=== PATIENT | male | born 1935 | race Caucasian/White ===

== ENCOUNTER 2024-06-10 06:06 | Inpatient (IN) | payer OTHER, SELFPAY ==
[2024-06-10] VITALS (29 sets, daily range): BP systolic 74–110; BP diastolic 49–85; BMI 20.1; BMI 21.4
[2024-06-10 03:53] LABS: % Basophils 0.4 % (0-2); % Eosinophils 0.6 % (0-6); % Immature Granulocytes 0.5 % (0-0.5); % Lymphocytes 27.8 % (20.5-51.1); % Monocytes 8.2 % (1.7-9.3); % Neutrophils 62.5 % (42.2-75.2); Absolute Eosinophils 0.1 10^3/uL (0-0.7); Absolute Lymphocytes 2.3 10^3/uL (1.2-3.4); Absolute Monocytes 0.7 10^3/uL (0.1-0.6); Absolute Neutrophils 5.2 10^3/uL (1.4-6.5); Hematocrit 41.3 % (39.0-52.0); Hemoglobin 13.5 g/dL (13.0-18.0); Mean Corp Hgb Conc. 32.7 g/dL (33.0-37.0); Mean Corpuscular Hgb 31.2 pg (27.0-31.0); Mean Corpuscular Volume 95.4 fL (80.0-94.0); Mean Platelet Volume 10.2 fL (7.4-10.4); Nucleated Red Blood Cells % 0 % (-); Platelet Count 281 10^3/uL (130-400); Red Blood Cell Count 4.33 10^6/uL (4.70-6.10); Red Cell Dist. Width 15.3 % (11.5-14.5); White Blood Cell Count 8.4 10^3/uL (4.8-10.8)
[2024-06-10 04:04] LABS: Lactic Acid 3.2 mmol/L (0.7-2.0)
[2024-06-10 04:05] LABS: ALT (SGPT) 20 U/L (0-50); AST (SGOT) 38 U/L (17-59); Albumin 2.7 g/dl (3.5-5.0); Alkaline Phosphatase 120 U/L (38-126); Blood Urea Nitrogen 35 mg/dl (9-20); Calcium 7.8 mg/dl (8.4-10.2); Carbon Dioxide 28 mmol/L (22-30); Chloride 104 mmol/L (98-107); Estimated Creatinine Clearance 27 ml/min; Glucose 138 mg/dl (70-99); Lipase 388 U/L (23-300); Potassium 4.4 mmol/L (3.5-5.1); Sodium 143 mmol/L (135-145); Total Bilirubin 0.6 mg/dl (0.2-1.3); Total Protein 6.4 g/dl (6.3-8.2); eGFR 35.76
[2024-06-10 04:05] LABS: Urine Albumin Trace (Neg - Trace); Urine Bilirubin 1+ (Negative); Urine Color Amber; Urine Glucose Negative (Negative); Urine Ketone 1+ (Negative); Urine Leukocyte 2+ (Negative); Urine Nitrite Negative (Negative); Urine Occult Blood 4+ (Negative); Urine Specific Gravity 1.025 (<1.030); Urine Urobilinogen Negative (Neg - 1+)
[2024-06-10 04:06] LABS: Urine Character Slightly Cloudy (Clear)
[2024-06-10 04:07] LABS: Urine Bacteria Many (Negative); Urine Red Blood Cell >100 /HPF (0-2); Urine White Cell >100 /HPF (0-5)
[2024-06-10 04:09] LABS: INR 1.48; PT 18.2 Sec (11.4-14.6)
[2024-06-10 04:10] LABS: APTT 37.6 Sec (23.4-35.0)
[2024-06-10 04:16] LABS: NT-proBNP 7920 pg/ml; Troponin I 0.157 ng/ml
--- NOTE | 2024-06-10 04:49 | ED.GENMED ---
History of Present Illness
General
Chief Complaint: Abdominal Pain
Source: patient and ambulance crew
Time Seen by Provider: 06/10/24 03:19
History of Present Illness
History of Present Illness:
This a pleasant 88-year-old male presents to the emergency department complaining of epigastric pain that is burning in nature. He does report associated shortness of breath. Patient lives at [facility] when he presented via
EMS. Patient has a history of duodenal ulcer with repair. He has been living [facility] since that surgery and April. Tonight patient reports shortness of breath which is exacerbated by lying flat. Patient denies fever,
chills, nausea or vomiting.
Review of Systems
Review of Systems
Allergies reviewed?: Yes
All Other Systems: ROS reviewed and negative except as documented in HPI and ROS
Respiratory: Reports cough and trouble breathing
Cardiac: Reports chest pain
ABD/GI: Reports abdominal pain
Psychiatric: Reports anxiety
Phy Exam
General Physical Exam
General Presentation: well appearing and no apparent distress
General Skin: warm and dry
General Habitus: normal
General Mental: alert
General Hydration: appears well hydrated
ENT Exam
ENT Exam: EOMI, pharynx normal, neck supple and normocephalic
Eye Exam
Eye Exam: PERRL, cornea clear and conjunctiva normal
Cardiovascular Exam
Cardiovascular Exam: regular rate/rhythm, no edema, no murmur and normal peripheral pulses
Pulmonary Exam
Pulmonary Exam: lungs clear, no respiratory distress, no rales, no crackles, no rhonchi, no stridor and no wheezing
Cough: coarse cough
Gastrointestinal Exam
Gastrointestinal Exam: normal bowel sounds, non tender, soft, no organomegaly, no pulsatile mass and non distended
Neurological Exam
Neurological Exam: alert, oriented x3, no motor deficits and speech normal
Musculoskeletal Exam
Musculoskeletal Exam: full ROM and no edema
Skin Exam
Skin Exam: normal color, warm/dry, no rash and no petechia
Psychiatric Exam
Psychiatric Exam: normal mood/affect
Scores
Heart Failure Risk
Heart Failure Risk Score: Yes
History of Stroke or TIA: No
History of intubation for respiratory distress: No
Heart rate on ED arrival >/= 110: Yes
SaO2 <90% on arrival on room air: No
HR >/=110 during 3min walk test (or too ill to perform test): Yes
ECG has acute ischemic changes: Yes
Urea >/=12mmol/L (BUN 33.6mg/dL): Yes
Serum CO2>/=35mmol/L: No
Troponin I or T elevated to IL Level (0.4mg/dL): No
NT-proBNP >/=5,000ng/L (5,000pg/ml): Yes
HF Risk Score: 6
Admission Status: VERY HIGH RISK 55.3% Consider admission to hospital
Sepsis
Sepsis Screening
Sepsis Assessment: Sepsis Ruled Out
Sepsis Screen
Sepsis Screen: Sepsis Ruled Out
Date: 06/11/24
Time: 21:47
Course
Orders/Labs/Results
Orders:
Orders
06/10/24 03:34
CR Chest - 2 Views Urgent
Comment:
Reason For Exam: chest pain
06/10/24 03:35
Electrocardiogram (*1) Urgent
Reason for Study: Abdominal Pain
EKG- Treatment ONCE
06/10/24 03:38
Complete Blood Count/With Diff Urgent
Comprehensive Metabolic Panel Urgent
Lactic Acid Urgent
Lipase Urgent
NT-proBNP Urgent
PTT Urgent
Prothrombin Time Urgent
Troponin I Urgent
06/10/24 03:40
Urinalysis Reflex To Culture Urgent
Date Specimen was Collected: 06/10/24
Time Specimen was Collected: 03:39
Urine Microscopic Reflex Cult Urgent
Blood Culture Q30M
RADHA Source: Blood/Venous
Specimen Description:
Urine Culture Urgent
RADHA Source: U
Specimen Description:
Date Specimen was Collected: 06/10/24
Time Specimen was Collected: 03:39
06/10/24 04:51
Furosemide [Lasix] 40 mg IV NOW STA
06/10/24 04:54
0.9% Sodium Chloride 250 ml [Nss] 250 ml IV BOLUS
Piperacillin/Tazo 4.5 Gram [Zosyn] 4.5 gram in 100 ml IV NOW
06/10/24 05:26
COVID-19 Antigen Urgent
Source: Nasal Swab
Blood Culture Q30M
RADHA Source: Blood/Venous
Specimen Description:
Influenza A+B Rapid Molecular Urgent
RADHA Source: Nasal Swab
Specimen Description:
06/10/24 05:29
Admit/Transfer Patient As Directed
Co-Sign Provider:
Level of Care: Inpatient admission
Assign to:: IMU- Intermediate Care
Physician / Group: Drake
Diagnosis: RACHNA, Pneumonia / Sepsis
Reason for Hospitalization: RACHNA, Pneumonia / Sepsis
Expected length of stay greater than two midnights?: Yes
ELOS- Estimated Length of Stay in days: 3
I certify the patient meets the requirements for IP care: Yes
06/10/24 05:30
PRN Pain Medication Management As Directed
May give lesser potent ordered pain med per pt: Yes
preference::
Protocol:: Medication orders for pain may be administered in a
manner that supports deferring to patient preference
when the pt is:
- Requesting an ordered lesser potent pain medication.
Least to most potent pain medications are defined
as: acetaminophen < NSAID < tramadol < opioids
(morphine, oxycodone, hydromorphone).
- Requesting a lesser dose of the same medication IF
ORDERED.
- Requesting a less intrusive route of administration
if both routes are prescribed by the provider (PO <
IV).
06/10/24 05:33
Code Status As Directed
Resuscitation Status: Full Code
06/10/24 05:43
Magnesium Sulfate 2 Gram/50 ml [Magnesium Sulfate] 2 gram in 50 ml IV NOW
Heparin Protocol- PTT Orders As Directed
PTT per Heparin protocol: -Obtain CBC and baseline PTT - if not already collected.
-Obtain PTT 6 hours from start of infusion. Then, every 6 hours until 2 consecutive
PTT's are therapeutic. Then, PTT Daily.
-With each rate change, obtain PTT every 6 hours until 2 consecutive PTT's are
therapeutic. Then, PTT Daily.
Notify MD As Directed
Notify physician if: PTT is greater than or equal to 200.
06/10/24 05:45
Heparin 92303 Units/250 ml 25,000 units in 250 ml IV PER PROTOCOL
Weight to be used for heparin protocol in kilograms (kg):: 67
Protocol:: Cardiac Tx/Acute Coronary
PTT Goal Range to be used:: PTT 73 to 111 seconds
Order type:: Initial
INITIAL Infusion Dose (UNITS/KG/hr) & then follow protocol:: 12 units/kg/hr
Infusion Dose in UNITS/hr & then follow protocol (UNITS/hr):: 800
INFUSION RATE in mL/hr & then follow protocol (mL/hr):: 8
PTT less than or equal to 64 seconds:: Increase rate by 200 units/hr (+ 2 mL/hr)
PTT 64.1 to 72.9 seconds:: Increase rate by 100 units/hr (+ 1 mL/hr)
PTT 73 to 111 seconds:: Target Range. No change in rate.
PTT 111.1 to 130.9 seconds:: Decrease rate by 100 units/hr (- 1 mL/hr)
PTT 131 to 199.9 seconds:: HOLD for 1 hr. Then decrease rate by 200 units/hr (- 2 mL/hr)
PTT greater than or equal to 200 seconds:: HOLD for 2 hrs & Notify Provider. Then decrease by 200 units/hr (-
2 mL/hr)
Lab follow-up:: Each change, PTT q6h until 2 consecutive are therapeutic. Then PTT
daily.
06/10/24 05:58
Complete Blood Count/No Diff Urgent
Comment: Obtain baseline before beginning heparin infusion if not already collected
PTT Urgent
Comment: Obtain baseline before beginning heparin infusion if not already collected
06/10/24 Breakfast
NPO
Allow oral meds: Yes
Allow clear liquids: Sips of Clears
06/10/24 06:06
Metoprolol [Lopressor] 2.5 mg IV NOW STA
06/10/24 07:44
Stool Culture Urgent
RADHA Source: Feces/Stool
Specimen Description:
Date Specimen was Collected: 06/10/24
Time Specimen was Collected: 07:44
06/10/24 09:00
Acetaminophen [Tylenol] 650 mg PO Q6H PRN
Aspirin Chewable [Low Strength Aspirin] 81 mg PO DAILY
Levalbuterol [Xopenex 0.63 mg Inhalant Solution] 0.63 mg INH R Q6HPRN PRN
Metoprolol [Lopressor] 75 mg PO BID
Morphine Sulfate 2 mg IV Q4HPRN PRN
Nitroglycerin Sublingual [Nitrostat (Sublingual)] 0.4 mg SL [id number] PRN
Nystatin/Triamcinolone [Mycolog Cream] See Dose Instructions TOPICAL TID
Pantoprazole [Protonix IV] 40 mg IV BID
Piperacillin/Tazo 3.375 Gram [Zosyn] 3.375 gram in 50 ml IV Q6H
Saccharomyces Boulardii [Florastor] 250 mg PO BID
06/10/24 09:00
Echo 2D MMode Doppler [Echo 2D MMode Color/Doppler] Routine
Reason for Study: CHF, A-Fib
CARDIOLOGY CONSULT Routine
Consulting Provider: Marla Gonzales.
Was physician already notified: No
Reason for consult: A-Fib, ACS
Consult Notification Routine
Specialty to Notify: Cardiology
Date consulting provider notified: 06/10/24
Time consulting provider notified: 09:29
Notified:: Provider
Comment: Marla Gonzales
WOUND/OSTOMY CONSULT Routine
Reason for Consult: Sacral Wound
Heparin Protocol- PTT Orders As Directed
PTT per Heparin protocol: -Obtain CBC and baseline PTT - if not already collected.
-Obtain PTT 6 hours from start of infusion. Then, every 6 hours until 2 consecutive
PTT's are therapeutic. Then, PTT Daily.
-With each rate change, obtain PTT every 6 hours until 2 consecutive PTT's are
therapeutic. Then, PTT Daily.
Activity As Directed
Activity Level: Ambulate
With Assistance
EKG with chest pain [ECG as needed] As Directed
ECG as needed for:: Chest Pain
I/O [Intake/ Output] As Directed
Frequency: Per unit guidelines
Notify MD As Directed
Notify physician if: PTT is greater than or equal to 200.
Precautions As Directed
Type of Precautions: Aspiration
Vital Signs As Directed
Frequency: Per unit guidelines
Weight As Directed
Frequency: Daily
Xopenex Reason for Use As Directed
Reason for ordering Xopenex instead of Albuterol: Tachycardia
Chest PT [Rx Chest Pt] [RESP] Routine
Special Instructions: BID
Incentive Spirometry [Rx Incentive Spirometry] [RESP] Routine
Frequency: q1h while awake
Oxygen Therapy [O2 Therapy] [RESP] Routine
Titrate/Wean O2 to maintain O2 sat greater than (%): 94
Ot Eval And Treat Routine
PT Consult [Pt Eval And Treat] Routine
Activity Level: Ambulate
With Assistance
Speech Therapy Eval & Treat Routine
DX Deep Vein Thrombosis Video Routine
06/10/24 09:35
Glycohemoglobin (HgbA1c) Routine
Troponin I Q6H
06/10/24 10:00
Ammonium Lactate 12% [Lac Hydrin, Am Lactin Lotion] See Dose Instructions TOPICAL BID
06/10/24 15:23
Troponin I Q6H
06/10/24 20:22
Troponin I Q6H
06/10/24 22:00
Atorvastatin [Lipitor] 10 mg PO HS
06/11/24 03:26
Complete Blood Count/No Diff IN AM
06/11/24 06:00
EKG [Electrocardiogram (*1)] IN AM
Reason for Study: Chest Pain
06/12/24 06:00
Complete Blood Count/No Diff Q2D
Comment: Notify MD if platelet count is <130,000 or decreases by 50% from baseline
Complete Blood Count/No Diff Q2D
Comment: notify provider: Platelet count < 130,000 or decrease by 50% from baseline
06/14/24 06:00
Complete Blood Count/No Diff Q2D
Comment: Notify MD if platelet count is <130,000 or decreases by 50% from baseline
Complete Blood Count/No Diff Q2D
Comment: notify provider: Platelet count < 130,000 or decrease by 50% from baseline
06/16/24 06:00
Complete Blood Count/No Diff Q2D
Comment: Notify MD if platelet count is <130,000 or decreases by 50% from baseline
Complete Blood Count/No Diff Q2D
Comment: notify provider: Platelet count < 130,000 or decrease by 50% from baseline
06/18/24 06:00
Complete Blood Count/No Diff Q2D
Comment: Notify MD if platelet count is <130,000 or decreases by 50% from baseline
Complete Blood Count/No Diff Q2D
Comment: notify provider: Platelet count < 130,000 or decrease by 50% from baseline
06/20/24 06:00
Complete Blood Count/No Diff Q2D
Comment: Notify MD if platelet count is <130,000 or decreases by 50% from baseline
Complete Blood Count/No Diff Q2D
Comment: notify provider: Platelet count < 130,000 or decrease by 50% from baseline
06/22/24 06:00
Complete Blood Count/No Diff Q2D
Comment: Notify MD if platelet count is <130,000 or decreases by 50% from baseline
Complete Blood Count/No Diff Q2D
Comment: notify provider: Platelet count < 130,000 or decrease by 50% from baseline
06/24/24 06:00
Complete Blood Count/No Diff Q2D
Comment: Notify MD if platelet count is <130,000 or decreases by 50% from baseline
Complete Blood Count/No Diff Q2D
Comment: notify provider: Platelet count < 130,000 or decrease by 50% from baseline
06/26/24 06:00
Complete Blood Count/No Diff Q2D
Comment: Notify MD if platelet count is <130,000 or decreases by 50% from baseline
Complete Blood Count/No Diff Q2D
Comment: notify provider: Platelet count < 130,000 or decrease by 50% from baseline
Abnormal Lab Results
06/10/24 06/10/24 06/10/24
03:38 03:40 05:58
RBC 4.33 L 10^6/uL 4.20 L 10^6/uL
(4.70-6.10) (4.70-6.10)
MCV 95.4 H fL 96.0 H fL
(80.0-94.0) (80.0-94.0)
MCH 31.2 H pg
(27.0-31.0)
MCHC 32.7 L g/dL 32.3 L g/dL
(33.0-37.0) (33.0-37.0)
RDW 15.3 H % 15.4 H %
(11.5-14.5) (11.5-14.5)
Absolute Monos (auto) 0.7 H 10^3/uL
(0.1-0.6)
PT 18.2 H Sec
(11.4-14.6)
APTT 37.6 H Sec
(23.4-35.0)
BUN 35 H mg/dl
(9-20)
Creatinine 1.8 H mg/dL
(0.7-1.3)
Glucose 138 H mg/dl
(70-99)
Lactic Acid 3.2 H mmol/L
(0.7-2.0)
Calcium 7.8 L mg/dl
(8.4-10.2)
Troponin I 0.157 H* ng/ml
Albumin 2.7 L g/dl
(3.5-5.0)
Lipase 388 H U/L
(23-300)
Urine Ketones 1+ A
(Negative)
Ur Occult Blood Reflex 4+ A
(Negative)
Urine Bilirubin 1+ A
(Negative)
Leukocyte Esterase Rfl 2+ A
(Negative)
Urine RBC >100 A /HPF
(0-2)
Urine WBC (Reflex) >100 A /HPF
(0-5)
Urine Bacteria (Reflex) Many A
(Negative)
06/10/24 05:58
06/10/24 03:38
Vital Signs
Initial and Last Documented VS:
Initial Vital Signs
Temp Pulse Resp Pulse Ox
98.1 F 127 35 94
06/10/24 03:21 06/10/24 03:21 06/10/24 03:21 06/10/24 03:21
Last Documented Vital Signs
Temp Pulse Resp BP Pulse Ox
97.4 F 113 23 107/73 96
06/11/24 21:07 06/11/24 17:28 06/11/24 06:00 06/11/24 17:28 06/11/24 15:54
*Critical Care Note
Total Time (30-74mins, 75-104mins- exclusive of procedures): Not Applicable
ED Attending Note
-
Portions of this chart may have been created with voice recognition software.� Occasional wrong word or��sound alike� substitutions may have occurred due to the inherent limitations of voice recognition software.
Discharge Plan
Departure
Patient Disposition: Admit
Date of Disposition: 06/10/24
Time of Disposition: 04:51
Presentation/result/management discussed w/ accepting MD/DO: Hospitalist
Condition: Fair
Discharge Problem:
CHF (congestive heart failure), Chest pain, Non-ST elevation IL (NSTEMI), Acute UTI, Sepsis
Interventions
Interventions:
*Risk Screen - Suicide Last Done: 06/10/24 03:21
*General Assessment Last Done: 06/10/24 03:21
*Neglect/Abuse Screening Last Done: 06/10/24 03:21
ED- Fall Risk Assessment Last Done: 06/10/24 04:07
*ED COVID-19 Vaccine History Last Done: 06/10/24 03:21
*Nursing Disposition Last Done: 06/10/24 18:30
ES-Ynlibf-[id number] Assessment Last Done: 06/10/24 04:07
Discharge Date and Time
Discharge Date/Time: 06/10/24 18:30
--- NOTE | 2024-06-10 05:17 | HPS.HSE ---
Family Physician
-
Family Physician: Bruce Calixto
Chief Complaint
-
SOB, Chest Discomfort
History of Present Illness
Patient is an 88y M with PMH significant for ASCVD, A-Fib and recent duodenal ulcer s/p repair who presents to ED complaining of burning epigastric pain and SOB. Patient is currently in SNF at [facility]. He was originally
hospitalized at [facility] in April for perforated duodenal ulcer and underwent ex alp and repair at that time. He was discharged to SNF in [place] from 04/20 - 05/21 and then discharged to home. He did not do well at home and was admitted to
[facility] on 06/01 for continued therapy / recovery.
Patient states that he developed a cough a few days ago. He has difficulty expectorating / bringing up mucus. He had a CXR done on that was read as RLL Pneumonia and he was started on abx with cefuroxime at that time.
This evening, patient states that his PM pills were all 'crushed up' and he took them. Following this he developed a burning sensation in the lower chest / upper abdomen. He complained of feeling SOB - especially with lying flat.
Staff at the facility noted that he was hypotensive with BP in the 80s and patient was sent to the ED for further evaluation and treatment.
At the time of my examination patient is awake and alert.
He continues to complain of a burning epigastric sensation and some shortness of breath and cough with thick mucus.
He denies any fevers / chills. He denies any recent GI complaints. He has a chronic Chiang in place.
Medical History
Past Medical History
Past Medical History: Reports Other
Additional Past Medical History:
ASCVD
Hypertension
Atrial Fibrillation
CHF - Unknown Type
BPH / Neurogenic Bladder
Duodenal Ulcer Perforation
CKD III
Past Surgical History: Reports Other
Additional Past Surgical History:
Ex Lap / Repair of Perforated Duodenal Ulcer (04/2024 @ [facility])
Right JEN
LLE ORIF
PTCA with Stent x 2
Social History
Tobacco: Non-smoker
Alcohol: None
Drug: None
Living: Other (Currently in rehab.)
Family History
Family History: Not pertinent
Allergies / Home Medications
Allergies reflects when Allergies were last updated in [facility].
Home Medications with original date entered in [facility]
Allergy/Medication List:
Allergies
Allergy/AdvReac Type Severity Reaction Status Date / Time
No Known Allergies Allergy Unverified 06/10/24 03:20
Home Medications
Saccharomyces boulardii 250 mg capsule 250 mg PO BID 06/10/24
acetaminophen 325 mg tablet 650 mg PO Q6H PRN fever or pain 06/10/24
ammonium lactate 12 % topical cream 1 applic topical BID 06/10/24
bisacodyl 10 mg rectal suppository (Dulcolax (bisacodyl)) 10 mg OK DAILY PRN constipation 06/10/24
cefuroxime axetil 500 mg tablet 500 mg PO BID 06/10/24
clopidogrel 75 mg tablet (Plavix) 75 mg PO DAILY AFIB 06/10/24
fenofibrate micronized 200 mg capsule 200 mg PO DAILY 06/10/24
furosemide 40 mg tablet (Lasix) 40 mg PO DAILY 06/10/24
lutein 25 mg-zeaxanthin 5 mg capsule 1 cap PO BID 06/10/24
magnesium hydroxide 400 mg/5 mL oral suspension (Milk of Magnesia) 1,200 mg PO DAILY PRN constipation 06/10/24
metoprolol tartrate 25 mg tablet 75 mg PO BID 06/10/24
nystatin-triamcinolone 100,000 unit/g-0.1 % topical cream 1 applic topical TID 06/10/24
pantoprazole 40 mg tablet,delayed release 40 mg PO DAILY GERD 06/10/24
rivaroxaban 15 mg tablet (Xarelto) 15 mg PO DAILY 06/10/24
simvastatin 20 mg tablet 20 mg PO HS 06/10/24
sodium phosphates 19 gram-7 gram/118 mL enema (Fleet Enema) 118 ml OK ONCE PRN constipation 06/10/24
tamsulosin 0.4 mg capsule (Flomax) 0.4 mg PO DAILY 06/10/24
tuberculin PPD 5 tub. unit/0.1 mL intradermal injection solution (Tubersol) 5 unit intradermal ONCE 06/10/24
zinc oxide 13 % topical cream 1 applic topical BID 06/10/24
Review of Systems
-
History Source: Patient
A 12 point ROS was completed and negative except as noted: Yes
Constitutional: Denies Fever or Chills
EENT: Denies Sore Throat
Respiratory: Reports Cough and Trouble Breathing; Denies Hemoptysis
Cardiac: Reports Chest Pain; Denies Diaphoresis, Palpitations or Syncope
Abdomen/GI: Reports Abdominal Pain; Denies Nausea, Vomiting or Diarrhea
: Denies Flank Pain or Bleeding
Musculoskeletal: Denies Joint Pain or Edema
Skin: Reports Other (Groin / perineum rash. Sacral wound.)
Neurological: Reports Headache; Denies Dizzy
Psych: Denies Depression or Anxiety
Physical Exam
Vital Signs
Vital Signs
Temp Pulse Resp BP Pulse Ox
98.1 F 131 22 96/68 95
06/10/24 03:21 06/10/24 04:06 06/10/24 04:06 06/10/24 04:06 06/10/24 04:06
Physical Exam
General: Other (Frail 88y M in mild distress due to dyspnea and cough.)
HEENT: Moist mucous membranes, PERRLA and Other (Missing / poor dentition. Neck is supple. Neck veins are flat.)
Respiratory: Other (Few coarse breath sounds - mostly at the R base. No wheeze / rales.)
Cardiac: S1/S2, Irregular Rhythm and Tachycardia; No Murmur
GI: Soft, Non Tender, Non Distended and Normal Bowel Sounds
Genito-urinary: Other (Chiang in place.)
Musculoskeletal: No Clubbing, No Cyanosis and Other (Chronic venous stasis skin changes. No significant LE edema.)
Skin: Other (Perineum rash / erythema. Sacral wound without bleeding.)
Neuro: AO x 3
Laboratory Results
-
06/10/24 03:38
06/10/24 03:38
Laboratory Results
PT 18.2 Sec (11.4-14.6) H 06/10/24 03:38
INR 1.48 06/10/24 03:38
APTT 37.6 Sec (23.4-35.0) H 06/10/24 03:38
Lactic Acid 3.2 mmol/L (0.7-2.0) H 06/10/24 03:38
Total Bilirubin 0.6 mg/dl (0.2-1.3) 06/10/24 03:38
AST 38 U/L (17-59) 06/10/24 03:38
ALT 20 U/L (0-50) 06/10/24 03:38
Alkaline Phosphatase 120 U/L (38-126) 06/10/24 03:38
Troponin I 0.157 ng/ml H* 06/10/24 03:38
Lipase 388 U/L (23-300) H 06/10/24 03:38
Impression/Plan
-
A/P: Patient is an 88y M with PMH significant for ASCVD, A-Fib, CHF and recently diagnosed RLL Pneumonia who presents to ED for evaluation of cough, SOB, epigastric pain and hypotension.
RLL Pneumonia
Sepsis secondary to the above
Lactic Acidosis secondary to the above
- Admit for further evaluation and treatment.
- Continue IV abx with Zosyn for now.
- Aspiration precautions, mucolytics, nebs (Xopenex).
- Follow for clinical improvement.
ACS
ASCVD
- EKG with ST changes in anteroseptal leads concerning for active ischemia. No prior tracings for comparison.
- Initial troponin = 0.157 - in patient with sepsis and A-Fib / RVR.
- Given history, current EKG and symptoms (burning epigastric pain) - will begin IV heparin for now.
- Monitor on tele.
- Follow serial troponin / EKG.
- Cardiology evaluation.
- ASA, statin, continue beta-blockade, etc.
Chronic HF - Unknown Type
- Patient does not appear volume overloaded on exam.
- Neck veins are flat, no significant edema - seems a change from exams documented at [facility].
- Would hold diuretics for now.
- Check Echo.
- Follow I/Os, daily weights, etc.
- Cardiology eval as noted above.
Atrial Fibrillation with Rapid Ventricular Response
- Initial heart rates approx 130 on arrival.
- Continue / resume metoprolol.
- Adjust chronotropic medications as needed for rate control.
- Hold Xarelto for now while on heparin.
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
- SCr = 1.8 and [facility] notes recent SCr = 1.4.
- Holding Lasix as noted above.
- Follow for return to baseline renal function.
Duodenal Ulcer
GERD
- s/p ex lap and duodenal ulcer repair in April at [facility].
- IV PPI BID for now.
- Abdomen exam is benign in the ED. No air beneath diaphragm on CXR.
- Consider GI evaluation if symptoms persist and CV evaluation as noted above is unremarkable.
BPH
Neurogenic Bladder
- Chiang in place. Maintain.
- UA noted - RBCs and WBCs in equal numbers. Nitrites negative.
- Follow-up culture data.
DVT Prophylaxis: On Heparin at present.
Code Status: Full
[2024-06-10] MEDS: NSS 250 IV ×3 (05:23→16:20)
[2024-06-10] MEDS: ZOSYN 100 IV (05:29)
[2024-06-10 05:53] LABS: COVID-19 Antigen Negative (Negative)
[2024-06-10 06:05] LABS: Hematocrit 40.3 % (39.0-52.0); Mean Corp Hgb Conc. 32.3 g/dL (33.0-37.0); Mean Platelet Volume 9.9 fL (7.4-10.4); Platelet Count 263 10^3/uL (130-400); Red Cell Dist. Width 15.4 % (11.5-14.5); White Blood Cell Count 7.4 10^3/uL (4.8-10.8)
[2024-06-10 06:14] LABS: APTT 33.8 Sec (23.4-35.0)
[2024-06-10] MEDS: LOPRESSOR 2.5 MG IV ×2 (06:19→11:00)
[2024-06-10] MEDS: MAGNESIUM SULFATE 50 IV (06:22)
[2024-06-10] MEDS: HEPARIN 25000 UNITS/250 ML IV (06:34)
[2024-06-10 07:43] LABS: Lactic Acid 2.5 mmol/L (0.7-2.0)
--- NOTE | 2024-06-10 09:01 | W.PN.HOSP.TC ---
Today's Communication/Plan
-
See bold
Assessment / Plan
Assessment / Plan
88y M with PMH significant for ASCVD, A-Fib and recent duodenal ulcer s/p repair who presents to ED complaining of burning epigastric pain and SOB. Patient is currently in SNF at [facility]. He was originally hospitalized at [place] in
April for perforated duodenal ulcer and underwent ex alp and repair at that time. He was discharged to SNF in [place] from 04/20 - 05/21 and then discharged to home. He did not do well at home and was admitted to [facility] on 06/01
for continued therapy / recovery.
Patient states that he developed a cough a few days ago. He has difficulty expectorating / bringing up mucus. He had a CXR done on 06/08/24 that was read as RLL Pneumonia and he was started on abx with cefuroxime at that time.
RLL Pneumonia
Sepsis secondary to the above
Lactic Acidosis secondary to the above
- Continue IV Zosyn, mucolytics, supportive care
- Trend fever and white count, follow-up on blood cultures
ACS/NSTEMI
ASCVD
- Appreciate cardiology input, continue IV heparin drip
- ASA, statin, continue beta-blockade, etc.
Chronic HF - Unknown Type
- Hold diuretics, follow-up on echo
Atrial Fibrillation with Rapid Ventricular Response
- Initial heart rates approx 130 on arrival.
- Status post metoprolol to tartrate 2.5 mg IV x 2
- Change home metoprolol 75 mg twice a day to 50 mg 4 times daily
- Hold Xarelto for now while on heparin.
Hypotension
- Gentle IV fluids, midodrine as needed MAP less than 65
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
- SCr = 1.8 and MS notes recent SCr = 1.4.
- Gentle IVFs, hold Lasix, trend Cr
Duodenal Ulcer
GERD
- s/p ex lap and duodenal ulcer repair in April at [place].
- IV PPI BID
Glucose intolerance
- Hemoglobin A1c 6.2
BPH
Neurogenic Bladder
- Chiang in place. Maintain.
- UA noted - RBCs and WBCs in equal numbers. Nitrites negative.
- Follow-up culture data.
DVT Prophylaxis: IV heparin
Code Status: Full
Physical Exam
General: Frail, elderly, no acute distress
HEENT: Normocephalic, Atraumatic, EOMI, MMM
Respiratory: Clear to Auscultation bilaterally
Cardiac: Normal S1/S2, tachycardic rate, irregular rhythm
GI: Soft, Nontender, Nondistended, Normal Bowel Sounds
Extremities: No Clubbing, Cyanosis
Neuro: Nonfocal/Grossly Intact
Anticipated Discharge: > 48 hours
Subjective/Interval History
-
Date of Service: June 10, 2024
Patient reports shortness of breath and cough have improved. No chest pain, no palpitations. No fever, no vomiting.
Objective Data
-
Labs:
Laboratory Results
06/10/24 06/10/24 06/10/24
03:38 05:58 12:34
WBC 8.4 7.4
Hgb 13.5 13.0
Hct 41.3 40.3
Plt Count 281 263
PT 18.2 H
INR 1.48
APTT 37.6 H 33.8 Pending
Sodium 143
Potassium 4.4
Chloride 104
Carbon Dioxide 28
BUN 35 H
Creatinine 1.8 H
Glucose 138 H
Calcium 7.8 L
Total Bilirubin 0.6
AST 38
ALT 20
Alkaline Phosphatase 120
Vital Signs:
Vital Signs
Temp Pulse Resp BP Pulse Ox
97.9 F 132 29 94/65 95
06/10/24 07:45 06/10/24 08:00 06/10/24 08:00 06/10/24 07:00 06/10/24 08:00
I&O
06/09/24 06/10/24 06/11/24
06:59 06:59 06:59
Intake Total 350 / 350
Output Total 200 / 200
Balance 350 / 350 -200 / -200
[2024-06-10] MEDS: PROTONIX IV 40 MG IV ×2 (09:35→20:40)
[2024-06-10] MEDS: NSS (PRESERVATIVE FREE) 10 ML IV ×2 (09:36→20:40)
[2024-06-10] MEDS: LOW STRENGTH ASPIRIN 81 MG PO (09:36)
[2024-06-10] MEDS: FLORASTOR 250 MG PO ×2 (09:37→20:40)
[2024-06-10] MEDS: MYCOLOG CREAM 1 APPLIC TOPICAL ×3 (09:41→22:24)
[2024-06-10] MEDS: ProAmatine 5 MG PO ×3 (10:09→18:07)
[2024-06-10] MEDS: LAC HYDRIN, AM LACTIN LOTION 1 APPLIC TOPICAL ×2 (10:10→22:23)
[2024-06-10 10:14] LABS: Glycohemoglobin (HgbA1c) 6.2 % (4.0-5.6)
--- NOTE | 2024-06-10 10:21 | CM ---
CM received call from JIE Thorne. . As per Edith, [facility]. He was discharged to home and ultimately declined. [facility]. Edith expressed that patient's
is unable to care for patient as she is elderly and frail.
Edith is requesting clinical information to be faxed to [phone]. Edith is further requesting update when patient is medically ready for discharge.
--- NOTE | 2024-06-10 10:55 | WOUNDNOTE ---
[facility] RN note: Patient admitted with RACHNA, pneumonia, sepsis. Patient admitted from [facility].
See H&P for complete history.
PMH: ASCVD, a fib, perforated duodenal ulcer, s/p exploratory lap repair at [place] 04/2024, CHF, CKD3, BPH, neurogenic bladder, R JEN, LLE ORIF, PTCA with stent.
Wound Location and type/assessment: Patient admitted with: Multiple scattered stage 2 and stage 3 pressure injuries. MASD kaylen/scrotal/penis/buttocks with excoriated skin kaylen/buttocks skin d/t loose stools. Blanchable red heels and spine.
+Hemosiderosis Le's. R dorsal distal foot with skin tag (patient states has had for many years). L upper ear crease red from o2 use.
Appetite: currently NPO. Poor appetite.
Pressure redistribution devices in place: ED stretcher with air chair cushion.
Plan: Kaylen care given, patient turned and sacral dressing changed with help from ED KAMAR Pandya. Heels off bed with TruVue lite boots. Air chair cushion placed under sacrum. KAMAR Pandya to pass onto ED RN Inocencio re: switching patient from ED stretcher
to an air bed. t/c Bed Tech [facility] and requested a [facility] air bed.
Will confirm orders with Dr. Corcoran and discussed with KAMAR Pandya.
Care plan to be updated and will follow as needed.
Note to case management of equipment requested for discharge: Air mattress at [facility] if not already in place.
Recommend follow up at wound care center upon discharge.
[2024-06-10] MEDS: LOPRESSOR 75 MG PO (11:00)
--- NOTE | 2024-06-10 11:57 | CON.CAR ---
Addendum entered and electronically signed by Dae Medina MD 06/10/24 14:06:
I saw and examined the patient.
The PSYCHIATRIC CNS's note was reviewed and I agree with the note.
Comment: Recent well done clinical trials have shown that a conservative treatment strategy of NSTEMI in the elderly is an acceptable strategy (see https://www.nejm.org/doi/10.1056/CJQLyj6371320). If needed we can move to an invasive strategy. His
BP is limiting treatment. Currently chest pain free.
Original Note:
Consultation
Consultation Request
Date/Time Consultation Requested: 06/10/24 0900
Date/Time Consultation Performed: 06/10/24 1130
Requesting Provider: Dr. Juan
Performing Provider: Sri MADERA for Dr. Medina
Reason for Consultation: AFIB, concern for ACS
Medical History
-
Chief Complaint: chest burning
History of Present Illness:
88 y/o male with hx CAD with stenting (about 5 years ago in [place], [place]- 2 stents per patient with details unknown), AFIB (type unknown, on Xarelto), Hypertension, CKD, CHF per chart (type unknown), and recent perforated duodenal ulcer ([place]) who
is at SNF and last night about 20 minutes after taking pills developed epigastric burning radiating to his mouth, as well as SOB. He was started on OP treatment for PNA due to a cough and abnormal CXR as OP. He is CP free at the time of my
assessment. He is being treated with ABX. We are consulted for ACS (symptoms, abnormal EKG, and abnormal troponin), as well as AFIB with RVR. He is CP free and in no distress at the time of my assessment. He does not feel his afib currently and rate
is only slightly elevated 100's-110's in setting of acute illness. BP is on low end. He denies any dizziness.
Past Medical History
Past Medical History: Arrhythmias, CAD, HTN and Other (CKD)
Social History
Living: Halfway
Family History
Family History: Reviewed & Not Pertinent
Allergies / Home Medications
Allergy/AdvReac Type Severity Reaction Status Date / Time
No Known Allergies Allergy Unverified 06/10/24 03:20
�Medication �Instructions �Recorded �Confirmed �Type
Saccharomyces boulardii 250 mg 250 mg PO BID probiotic 06/10/24 06/10/24 History
capsule
acetaminophen 325 mg tablet 650 mg PO Q6H PRN fever or pain 06/10/24 06/10/24 History
ammonium lactate 12 % topical cream 1 applic topical BID b/l le 06/10/24 06/10/24 History
bisacodyl 10 mg rectal suppository 10 mg IN DAILY PRN constipation if 06/10/24 06/10/24 History
(Dulcolax (bisacodyl)) no bm after MOM
cefuroxime axetil 500 mg tablet 500 mg PO BID infection 06/10/24 06/10/24 History
clopidogrel 75 mg tablet (Plavix) 75 mg PO DAILY AFib 06/10/24 06/10/24 History
fenofibrate micronized 200 mg 200 mg PO DAILY High Cholesterol 06/10/24 06/10/24 History
capsule
furosemide 40 mg tablet (Lasix) 40 mg PO DAILY Fluid 06/10/24 06/10/24 History
Retention/Swelling
lutein 25 mg-zeaxanthin 5 mg 1 cap PO BID Supplement 06/10/24 06/10/24 History
capsule
magnesium hydroxide 400 mg/5 mL 2,400 mg PO DAILYPRN PRN if no bm 06/10/24 06/10/24 History
oral suspension (Milk of Magnesia) x 3 days
metoprolol tartrate 25 mg tablet 75 mg PO BID Blood Pressure 06/10/24 06/10/24 History
nystatin-triamcinolone 100,000 1 applic topical TID b/l butt, 06/10/24 06/10/24 History
unit/g-0.1 % topical cream sacrum, groin
pantoprazole 40 mg tablet,delayed 40 mg PO DAILY GERD 06/10/24 06/10/24 History
release
rivaroxaban 15 mg tablet (Xarelto) 15 mg PO DAILY Blood Clot 06/10/24 06/10/24 History
Prevention/Tx
simvastatin 20 mg tablet 20 mg PO HS High Cholesterol 06/10/24 06/10/24 History
sodium phosphates 19 gram-7 118 ml IN DAILYPRN PRN if dulcolax 06/10/24 06/10/24 History
gram/118 mL enema (Fleet Enema) ineffective
tamsulosin 0.4 mg capsule (Flomax) 0.4 mg PO DAILY Urinary Issue 06/10/24 06/10/24 History
zinc oxide 13 % topical cream 1 applic topical BID sacrum, 06/10/24 06/10/24 History
buttock, groin
Review of Systems
-
History Source: Patient and Other (and chart)
Respiratory: Cough and Trouble Breathing
Cardiac: Chest Pain
Physical Exam
Vital Signs
Temp Pulse Resp BP Pulse Ox
97.9 F 109 23 85/61 97
06/10/24 07:45 06/10/24 11:30 06/10/24 11:30 06/10/24 11:30 06/10/24 11:30
Lab Results
06/10/24 05:58
06/10/24 03:38
Troponin I 2.460 ng/ml H* D 06/10/24 09:35
Lqd-A-Anvwsdtwqxs Pept 7920 pg/ml 06/10/24 03:38
Physical Exam
General: Well Developed and No Apparent Distress
HEENT: Normocephalic and Anicteric
Respiratory: Clear and Non Labored Respirations
Cardiac: Regular Rhythm
Musculoskeletal: No Edema
Skin: Warm and Dry
Neuro: AO x 3
Psych: Calm
Impression / Plan
-
PNA, sepsis:
-on abx
-management per primary
NSTEMI:
-this diagnosis is threat to life
-CP free at present
-give full dose ASA
-maintain on heparin gtt, which requires intensive monitoring
-obtain echo
-would not plan for cardiac cath at this time (active PNA, no CP, abnormal creatinine, frail/elderly)- risk greater than benefit currently
CAD with hx stenting:
-on Plavix/Xarelto as OP. Currently on ASA/heparin.
-plan as above
AFIB:
-type unknown- continue metoprolol as BP will tolerate- follow tele. Rates a little fast in setting of acute illness. No symptoms from this.
-on Xarelto as OP and currently on heparin
CHF, type unknown:
-checking echo
-does not appear volume overloaded to assessment
Data Reviewed
-
EKG: Tracing Personally Visualized and interpreted (AFIB with RVR with ST abnor,alities)
Radiology: Report Reviewed by me (CXR: Right middle lobe atelectasis/collapse with volume loss. 2. Small bilateral pleural effusions.)
Medical Tests (Nuc Med, Echo etc): Other (echo ordered)
Labs: Labs Reviewed by me
[2024-06-10] MEDS: ZOSYN 50 IV ×3 (12:05→23:57)
[2024-06-10] MEDS: NSS 1000 IV ×2 (12:08→23:57)
[2024-06-10 12:46] LABS: APTT 36.4 Sec (23.4-35.0)
--- NOTE | 2024-06-10 12:53 | PTOTSP ---
Speech Therapy Evaluation:
Pt with clinical indications of oropharyngeal dysphagia, likely chronic in nature related to hx of GERD and mostly edentulous state, acutely exacerbated by respiratory insufficiency in the setting of increased congestion/cough, change in oxygenation
(requiring supplemental oxygen), and respiratory rate (becomes SOB while eating/talking). Pt also with recently diagnosed RLL. Pt accepted trials of thin liquids via cup/straw and regular solids with coughing during and outside of PO intake,
therefore difficult to discern if aspiration related. Unable to complete 3oz swallow screen as pt reported he is unable to take consecutive sips of water ( ? if related to associated SOB). MIXER OPERATOR educated pt on recommendation for VSE in future (once BP
and tachycardia resolve) given s/sx of aspiration at bedside and recently diagnosed RLL PNA. Pt in verbal agreement.
Recommend:
1. Continue NPO
2. Essential medications as tolerated
3. Oral care 3x daily
4. Ongoing ST at acute care level to determine candidacy to initiate oral diet and monitor readiness for VSE.
[2024-06-10] MEDS: ASPIRIN 325 MG PO (14:04)
[2024-06-10] MEDS: LOPRESSOR 50 MG PO (18:07)
--- NOTE | 2024-06-10 18:37 | CM ---
Patient's called to discuss previous discharge plan. Patient was recently at [facility] and then transitioned to [facility] after a hospitalization.
--- NOTE | 2024-06-10 19:00 | PTCARENOTE ---
Patient received from ED. Patient was car clerk pullman to room bed. AAO, TORYS. Heparin gtt and IVF running through IV. Wounds assessed with oncoming RN. Admission questions answer and patient oriented to room. Call preston in reach.
[2024-06-10 20:42] LABS: Lactic Acid 1.4 mmol/L (0.7-2.0)
[2024-06-10 20:48] LABS: APTT 123.7 Sec (23.4-35.0)
[2024-06-10] MEDS: LIPITOR 10 MG PO (22:22)
[2024-06-10] MEDS: LOPRESSOR PO (23:54)
[2024-06-11] VITALS (17 sets, daily range): BP systolic 88–121; BP diastolic 55–86; PULSE 110–116; O2SAT 94; BMI 21.6
--- NOTE | 2024-06-11 01:01 | PTCARENOTE ---
Rec'd pt from previous RN. Pt drowsy, but arousable to verbal stimuli and oriented. Pt is [place]. C/o 'a little' discomfort across his chest which he is unable to decipher between chest pain or epigastric pain. Denies additional complaints at this
time. Appears comfortable in bed upon assessment. Pt able to take oral medications whole with small sips of water. Call preston within reach. Pt ringing appropriately. Assessment as documented. Heparin gtt remains in place, titrated per protocol, see
worklist documentation.
[2024-06-11 03:43] LABS: Hematocrit 38.5 % (39.0-52.0); Hemoglobin 12.3 g/dL (13.0-18.0); Mean Corp Hgb Conc. 31.9 g/dL (33.0-37.0); Mean Corpuscular Hgb 31.2 pg (27.0-31.0); Mean Corpuscular Volume 97.7 fL (80.0-94.0); Mean Platelet Volume 10.8 fL (7.4-10.4); Platelet Count 283 10^3/uL (130-400); Red Blood Cell Count 3.94 10^6/uL (4.70-6.10); Red Cell Dist. Width 15.9 % (11.5-14.5); White Blood Cell Count 6.2 10^3/uL (4.8-10.8)
[2024-06-11 03:55] LABS: APTT 117.6 Sec (23.4-35.0)
[2024-06-11] MEDS: LOPRESSOR PO ×2 (05:33→23:38)
[2024-06-11] MEDS: ZOSYN 50 IV ×4 (05:37→23:40)
[2024-06-11 06:32] LABS: Blood Urea Nitrogen 34 mg/dl (9-20); Calcium 7.4 mg/dl (8.4-10.2); Carbon Dioxide 28 mmol/L (22-30); Chloride 108 mmol/L (98-107); Estimated Creatinine Clearance 30 ml/min; Glucose 87 mg/dl (70-99); HDL Cholesterol 28 mg/dl; LDL Cholesterol, Calculated 60 mg/dl; Magnesium 1.8 mg/dl (1.6-2.3); Potassium 3.8 mmol/L (3.5-5.1); Sodium 143 mmol/L (135-145); Total Cholesterol 113 mg/dl (50-199); Triglyceride 125 mg/dl (10-149); Very Low Density Lipoprotein 25 mg/dl (0-30); eGFR 41.19
--- NOTE | 2024-06-11 08:16 | W.PN.CD ---
Today's Communication / Plan
-
Transition aspirin to Plavix
Complete heparin drip for 48 hours then transition back to Xarelto
Reduce metoprolol dose to hopefully allow for more consistent dosing.
Impression / Plan
-
PNA, sepsis:
-on abx
-management per primary
NSTEMI:
-this diagnosis is threat to life
-CP free at present
-Patient typically on Plavix/Xarelto as outpatient, currently on aspirin and heparin. Will stop aspirin and resume Plavix today.
-maintain on heparin gtt, which requires intensive monitoring--- complete for 48 hours and then transition back to Xarelto, avoiding triple therapy given recent perforated duodenal ulcer.
-Echo below
-would not plan for cardiac cath at this time (active PNA, no CP, abnormal creatinine, frail/elderly)- risk greater than benefit currently
Will ultimately transition back to Plavix/Xarelto
CAD with hx stenting:
-on Plavix/Xarelto as OP. Currently on ASA/heparin.
-plan as above
AFIB:
-type unknown- continue metoprolol as BP will tolerate- follow tele.
-Rates reasonable, has not been getting metoprolol due to holding parameters. Will reduce dose to see if this will allow for more consistent dosing. Transition to succinate for discharge.
-on Xarelto as OP and currently on heparin
Heart failure with mildly reduced ejection fraction type unknown:
-Chronic
-does not appear volume overloaded to assessment
-GDMT limited by CKD and BP
Right lower lobe pneumonia care per medicine
subjective:
He has not had any further chest pain. He is still a bit short of breath but this is improving, has a productive cough.
TTE 06/11/2024 CONCLUSIONS
Mildly reduced left ventricular systolic function.
LV ejection fraction is 40-45% by visual assessment.
Basal to mid inferoseptal and basal and mid inferior hypokinesis.
Moderate left atrial enlargement.
Mitral annular calcification.
Mild mitral regurgitation.
Aortic sclerosis without stenosis.
No prior study available for comparison.
Physical Exam
Vital Signs/Labs
Vital Signs
Temp Pulse Resp BP Pulse Ox
97.7 F 95 23 98/63 99
06/11/24 05:11 06/11/24 06:00 06/11/24 06:00 06/11/24 06:00 06/11/24 06:00
06/10/24 06/11/24 06/12/24
06:59 06:59 06:59
Actual Weight 67 kg 66.3 kg
06/11/24 03:26
06/11/24 04:41
PT 18.2 Sec (11.4-14.6) H 06/10/24 03:38
INR 1.48 06/10/24 03:38
APTT 117.6 Sec (23.4-35.0) H 06/11/24 03:26
Magnesium 1.8 mg/dl (1.6-2.3) 06/11/24 04:41
Triglycerides 125 mg/dl (10-149) 06/11/24 04:41
LDL Cholesterol, Calc 60 mg/dl 06/11/24 04:41
VLDL Cholesterol, Calc 25 mg/dl (0-30) 06/11/24 04:41
HDL Cholesterol 28 mg/dl 06/11/24 04:41
06/10/24
03:38
Jrf-I-Ebnkzmvwwda Pept 7920
LAB Results
06/10/24 06/10/24 06/10/24
03:38 09:35 15:23
Troponin I 0.157 H* 2.460 H* D 12.200 H* D
06/10/24 06/11/24 06/11/24
20:22 03:26 08:00
Troponin I 19.000 H* D 12.200 H* D Cancelled
06/11/24 06/11/24
14:00 20:00
Troponin I Cancelled Cancelled
Physical Exam
Constitutional: No acute distress
Cardiovascular: Pedal edema is absent, JVD pressure is normal, Systolic murmur absent, Diastolic murmur absent and Rhythm/rate is irregular
Respiratory: Respiratory effort normal, Wheeze Absent, Crackles Absent and Rhonchi Present (Right lung adam)
Neuro/Psych: AO x 3
Data Reviewed
-
Date of Service: June 11, 2024
Medical Decision Making: Review of Case with other Provider (Telemetry shows aFib at times rate is a little bit fast but mostly overall good control. )
--- NOTE | 2024-06-11 09:00 | PTCARENOTE ---
Patient received from shift mgr. Patient resting comfortably in bed. AAO, VSS. No events noted overnight. No complaints of pain at this time. Currently on 2L N/C, mid 's sats. Heparin gtt continuing with IVF as well through IV. Wound care
to be done later today. No tests scheduled for today at this time. Call preston in reach.
--- NOTE | 2024-06-11 09:07 | W.PN.HOSP.TC ---
Addendum entered and electronically signed by Dawson Corcoran MD 06/11/24 15:35:
Correction, aspirin discontinued since Plavix has been added
Original Note:
Today's Communication/Plan
-
see bold
Assessment / Plan
Assessment / Plan
88y M with PMH significant for ASCVD, A-Fib and recent duodenal ulcer s/p repair who presents to ED complaining of burning epigastric pain and SOB. Patient is currently in SNF at [facility]. He was originally hospitalized at [place] in
April for perforated duodenal ulcer and underwent ex alp and repair at that time. He was discharged to SNF in [place] from 04/20 - 05/21 and then discharged to home. He did not do well at home and was admitted to [facility] on 06/01
for continued therapy / recovery.
Patient states that he developed a cough a few days ago. He has difficulty expectorating / bringing up mucus. He had a CXR done on 06/08/24 that was read as RLL Pneumonia and he was started on abx with cefuroxime at that time.
RLL Pneumonia
Sepsis secondary to the above
Lactic Acidosis secondary to the above
- Continue IV Zosyn D2, mucolytics, supportive care
- Trend fever and white count, blood cultures negative to date
Dysphagia
- SPL recommends n.p.o. until VSE
- Patient declining VSE today, hopeful for tomorrow
ACS/NSTEMI
ASCVD
- Appreciate cardiology input, continue IV heparin drip, Plavix added 06/11
- ASA, statin, continue beta-blockade, etc.
Chronic heart failure with reduced ejection fraction
- EF 40-45%
- Hold diuretics due to sepsis and NPO status
Atrial Fibrillation with Rapid Ventricular Response
- Appreciate cardiology input, metoprolol decreased to 25 mg every 6 hours
- Hold Xarelto for now while on IV heparin.
Hypotension
- Gentle IV fluids, midodrine as needed MAP less than 65
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
- SCr = 1.6, was 1.8 and [place] notes recent SCr = 1.4.
- Gentle IVFs, hold Lasix, trend Cr
Duodenal Ulcer
GERD
- s/p ex lap and duodenal ulcer repair in April at [place].
- IV PPI BID
Glucose intolerance
- Hemoglobin A1c 6.2
BPH
Neurogenic Bladder
- Chiang in place. Maintain.
- UA noted - RBCs and WBCs in equal numbers. Nitrites negative.
- Urine cultures growing 100,000 colonies gram-negative rods, could be colonization
DVT Prophylaxis: IV heparin
Code Status: Full
Total time spent to see the patient on the floor, examine the patient, review data and lab results, discuss treatment plan with patient, nursing staff around 51 minutes.
Physical Exam
General: Frail, elderly, no acute distress
HEENT: Normocephalic, Atraumatic, EOMI, MMM
Respiratory: Right basilar rhonchi
Cardiac: Normal S1/S2, tachycardic rate, irregular rhythm
GI: Soft, Nontender, Nondistended, Normal Bowel Sounds
Extremities: No Clubbing, Cyanosis
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
Neuro: Nonfocal/Grossly Intact
Anticipated Discharge: > 48 hours
Subjective/Interval History
-
Date of Service: June 11, 2024
Patient continues to cough. Denies chest pain, shortness of breath, or palpitations. No fever, no vomiting.
Objective Data
-
Labs:
Laboratory Results
06/11/24 06/11/24 06/11/24
03:26 04:41 11:00
WBC 6.2
Hgb 12.3 L
Hct 38.5 L
Plt Count 283
APTT 117.6 H Pending
Sodium Cancelled 143
Potassium Cancelled 3.8
Chloride Cancelled 108 H
Carbon Dioxide Cancelled 28
BUN Cancelled 34 H
Creatinine Cancelled 1.6 H
Glucose Cancelled 87
Calcium Cancelled 7.4 L
Vital Signs:
Vital Signs
Temp Pulse Resp BP Pulse Ox
97.7 F 95 23 98/63 99
06/11/24 05:11 06/11/24 06:00 06/11/24 06:00 06/11/24 06:00 06/11/24 06:00
I&O
06/10/24 06/11/24 06/12/24
06:59 06:59 06:59
Intake Total 350 / 350 1060 / 1060
Output Total 650 / 650
Balance 350 / 350 410 / 410
[2024-06-11] MEDS: LOW STRENGTH ASPIRIN PO (09:13)
[2024-06-11] MEDS: NSS (PRESERVATIVE FREE) 10 ML IV ×2 (09:13→19:56)
[2024-06-11] MEDS: LAC HYDRIN, AM LACTIN LOTION 1 APPLIC TOPICAL ×2 (09:14→19:56)
[2024-06-11] MEDS: PROTONIX IV 40 MG IV ×2 (09:14→19:55)
[2024-06-11] MEDS: PLAVIX 75 MG PO (09:14)
[2024-06-11] MEDS: FLORASTOR 250 MG PO ×2 (09:14→19:55)
[2024-06-11] MEDS: MYCOLOG CREAM 1 APPLIC TOPICAL ×3 (09:15→21:39)
--- NOTE | 2024-06-11 09:25 | PTOTSP ---
Speech Language Pathology
Pt seen for dysphagia tx. Significant wet coughing at baseline, productive at times for frothy mucous. Elevated HR with activity. Seen with meds 1 at a time with sip of liquid. Cough following 1/2 meds, unsure if related to P.O. intake. Given
significant coughing and recent dx of RLL PNA, recommend instrumental swallowing assessment.
Recommend:
(1) NPO
(2) VSE
(3) Oral care 4x/day with suctioning as needed
(4) Ok to given meds
(5) UX UI DESIGNER to continue to follow
[2024-06-11] MEDS: LOPRESSOR 25 MG PO ×2 (11:56→17:28)
[2024-06-11 12:55] LABS: APTT 140.3 Sec (23.4-35.0)
--- NOTE | 2024-06-11 13:40 | PTOTSP ---
Addendum entered and electronically signed by ST Jerardo 06/11/24 15:17:
spoke with pt. Per MD, he is to remain full code. Will remain NPO and attempt VSE again tomorrow.
Original Note:
Speech Language Pathology
Pt seen for second bedside session, as he is refusing VSE which was ordered. Discussed with pt at bedside at length. Explained reason for test, and pt stated he does not want to get up in a chair for the study. Stating he has been in and out of
hospitals and doesn't want to do more, referencing that he is 88 years old and has lived a life. Pt stated he wants to eat and see what happens.
Coughing noted with pt expectorating frothy mucous at times. Seen with sips of thin liquids via straw with cough following in 50% of trials. No overt coughing with small bites of regular solids.
Pt remains at a high risk for aspiration. Unable to fully assess pharyngeal swallow without VSE, and pt not currently willing to participate. Pt would like to eat/drink. If diet is to be considered despite risks, given limited dentition, would
consider IDDSI Level 6 (soft/bite-sized) and thin liquids. Of note, question possible esophageal involvement given epigastric pain day of admission in combination with expectoration of frothy mucous. and RN updated on discussion. Speech to
continue to follow.
[2024-06-11] MEDS: HEPARIN 25000 UNITS/250 ML IV (15:12)
--- NOTE | 2024-06-11 15:34 | W.PN.HOSP.TC ---
Today's Communication/Plan
-
Continue goals of care conversations
Assessment / Plan
Assessment / Plan
88y M with PMH significant for ASCVD, A-Fib and recent duodenal ulcer s/p repair who presents to ED complaining of burning epigastric pain and SOB. Patient is currently in SNF at [facility]. He was originally hospitalized at [place] in
April for perforated duodenal ulcer and underwent ex alp and repair at that time. He was discharged to SNF in [place] from 04/20 - 05/21 and then discharged to home. He did not do well at home and was admitted to [facility] on 06/01
for continued therapy / recovery.
Patient states that he developed a cough a few days ago. He has difficulty expectorating / bringing up mucus. He had a CXR done on 06/08/24 that was read as RLL Pneumonia and he was started on abx with cefuroxime at that time.
RLL Pneumonia
Sepsis secondary to the above
Lactic Acidosis secondary to the above
- Continue IV Zosyn D3, mucolytics, supportive care
- Trend fever and white count, blood cultures negative to date
Dysphagia
- SPL recommends n.p.o. until VSE
- 06/12 VSE shows aspiration, SPL rec GOC
- Can have essential meds in pur�e and single sips of water with supervision for comfort
- 06/12, goals of care conversations initiated by myself with patient and
- Seen by palliative care, who recommends DNR status and hospice
ACS/NSTEMI
ASCVD
- Appreciate cardiology input, recommend medical management
- Status post IV heparin drip, now back on Xarelto, Plavix added 06/11, aspirin discontinued
- Continue statin and beta-scout
Chronic heart failure with reduced ejection fraction
- EF 40-45%
- Hold diuretics due to sepsis and NPO status
Atrial Fibrillation with Rapid Ventricular Response
- Appreciate cardiology input, metoprolol decreased to 25 mg every 6 hours
- Hold Xarelto for now while on IV heparin.
Hypotension
- Gentle IV fluids, midodrine as needed MAP less than 65
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
- SCr = 1.6, was 1.8 and NH notes recent SCr = 1.4.
- Gentle IVFs, hold Lasix, trend Cr
Duodenal Ulcer
GERD
- s/p ex lap and duodenal ulcer repair in April at [place].
- IV PPI BID
Glucose intolerance
- Hemoglobin A1c 6.2
BPH
Neurogenic Bladder
- Carrasquillo in place. Maintain.
- UA noted - RBCs and WBCs in equal numbers. Nitrites negative.
- Urine cultures growing 100,000 colonies gram-negative rods, likely colonization from chronic carrasquillo
Stage 3 sacrum pressure injury, POA
Stage 1 left upper ear pressure injury, POA
-wound care, offloading
DVT Prophylaxis: Xarelto
Code Status: Full
Total time spent to see the patient on the floor, examine the patient, review data and lab results, discuss treatment plan with patient, nursing staff around 53 minutes.
Physical Exam
General: Frail, elderly, appears chronically ill, but in no acute distress
HEENT: Normocephalic, Atraumatic, EOMI, DMM
Respiratory: Right basilar rhonchi
Cardiac: Normal S1/S2, tachycardic rate, irregular rhythm
GI: Soft, Nontender, Nondistended, Normal Bowel Sounds
Extremities: No Clubbing, Cyanosis
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
Neuro: Nonfocal/Grossly Intact
Derm: Diffuse ecchymosis of upper extremities
Anticipated Discharge: > 48 hours
Subjective/Interval History
-
Date of Service: June 11, 2024
Patient continues to cough. He denies shortness of breath, denies chest pain, denies palpitations. No fever, no vomiting.
Objective Data
-
Labs:
Laboratory Results
06/11/24 06/11/24 06/11/24
03:26 04:41 12:25
WBC 6.2
Hgb 12.3 L
Hct 38.5 L
Plt Count 283
APTT 117.6 H 140.3 H
Sodium Cancelled 143
Potassium Cancelled 3.8
Chloride Cancelled 108 H
Carbon Dioxide Cancelled 28
BUN Cancelled 34 H
Creatinine Cancelled 1.6 H
Glucose Cancelled 87
Calcium Cancelled 7.4 L
06/11/24
21:10
WBC
Hgb
Hct
Plt Count
APTT Pending
Sodium
Potassium
Chloride
Carbon Dioxide
BUN
Creatinine
Glucose
Calcium
Vital Signs:
Vital Signs
Temp Pulse Resp BP Pulse Ox
97.6 F 126 23 98/86 99
06/11/24 11:45 06/11/24 11:56 06/11/24 06:00 06/11/24 11:56 06/11/24 06:00
I&O
06/10/24 06/11/24 06/12/24
06:59 06:59 06:59
Intake Total 350 / 350 1060 / 1060
Output Total 650 / 650
Balance 350 / 350 410 / 410
[2024-06-11] MEDS: NSS 1000 IV (15:43)
--- NOTE | 2024-06-11 16:05 | WOUNDNOTE ---
WOC RN note: Deven Ward re: recommend air mattress for patient at SNF if not already in place. He has sacral pressure injuries.
--- NOTE | 2024-06-11 16:08 | CM ---
Patient from [facility] with Hx recent repair perforated duodenal ulcer. O2 2L. Receiving IVF, Heparin gtt, IV Abx. PT/OT recommend skilled rehab.
Spoke with Jonathan Victor [facility];
the patient was at their facility for about 1 week for short term rehab. He did not hold his bed.
The patient was A/O, assisted with ADLs.
He self propels his w/c and requires assist of 1.
He has a carrasquillo, sacral wound and was receiving PT/OT.
Spoke with patient's Joslyn;
the patient has poor vision and his glasses were left at [place] so he is upset because he cannot see.
The patient's goes to dialysis MWF 10am - 3:30pm and keeps her cell phone with her ([phone])
says patient was at [facility] recently and went to [facility] and then home for 1 night, then returned to [facility] and then discharged to [facility].
says that the patient will want to return to [facility] to complete rehab.
The patient resides in a 2 story house with no steps at entrance.
He had been independent in ADLs and ambulation without using any assistive devices, prior to his recent surgery.
The patient recently had hospital bed delivered and slept in it one night.
DME - walker without wheels, hospital bed, air mattress, commode, w/c
Recent [facility]
PCP - Maryjane Alexander [place]
Message from Meryl, Wound Care Nurse: recommend air mattress at [facility] if not already in place. He has sacral pressure injuries- info added to [facility] referral.
Plan return to [facility] when medically ready.
[2024-06-11] MEDS: LIPITOR 10 MG PO (21:39)
[2024-06-11 22:02] LABS: APTT 72.1 Sec (23.4-35.0)
[2024-06-12] VITALS (15 sets, daily range): BP systolic 86–119; BP diastolic 59–94; BMI 20.7
[2024-06-12 04:46] LABS: Hemoglobin 11.5 g/dL (13.0-18.0); Mean Corp Hgb Conc. 31.1 g/dL (33.0-37.0); Mean Corpuscular Hgb 30.6 pg (27.0-31.0); Mean Corpuscular Volume 98.4 fL (80.0-94.0); Mean Platelet Volume 9.9 fL (7.4-10.4); Platelet Count 235 10^3/uL (130-400); Red Blood Cell Count 3.76 10^6/uL (4.70-6.10); Red Cell Dist. Width 15.6 % (11.5-14.5); White Blood Cell Count 5.8 10^3/uL (4.8-10.8)
[2024-06-12 04:54] LABS: APTT 75.6 Sec (23.4-35.0)
--- NOTE | 2024-06-12 05:23 | PTCARENOTE ---
Pt AAO, sBP 80s, but MAPs> 65, pt denies symptoms of hypotension. Heparin gtt in place, titrated per protocol, see worklist documentation. HF packet given and education performed. Call preston within reach.
[2024-06-12] MEDS: NSS 1000 IV ×2 (05:30→17:28)
[2024-06-12] MEDS: ZOSYN 50 IV ×3 (05:56→17:22)
[2024-06-12] MEDS: LOPRESSOR 25 MG PO ×3 (06:25→23:55)
--- NOTE | 2024-06-12 09:23 | W.PN.CD ---
Today's Communication / Plan
-
transition heprarin to xarelto
continue to monitor bb use with eventual transion to succinate
Impression / Plan
-
PNA, sepsis:
-on abx
-management per primary
NSTEMI:
-this diagnosis is threat to life
-CP free at present
-Patient typically on Plavix/Xarelto as outpatient, currently on aspirin and heparin. Continue clopidogrel
-maintain on heparin gtt, which requires intensive monitoring until this evening and then transition to Xarelto 15 mg daily.
-Echo below
-would not plan for cardiac cath at this time (active PNA, no CP, abnormal creatinine, frail/elderly)- risk greater than benefit currently
-Beta-scout
CAD with hx stenting:
-on Plavix/Xarelto as OP. Currently on ASA/heparin.
-plan as above
AFIB:
-type unknown- continue metoprolol as BP will tolerate- follow tele.
-Rates reasonable, has not been getting metoprolol due to holding parameters. I reduced the dose yesterday, did get 3 out of 4 doses. Will continue to monitor with eventual transition to succinate when able.
Heart failure with mildly reduced ejection fraction type unknown:
-Chronic
-does not appear volume overloaded to assessment
-GDMT limited by CKD and BP
Right lower lobe pneumonia care per medicine
Subjective:
He has not had any further chest pain. He denies sob.
He just got back from [facility]
TTE 06/11/2024 CONCLUSIONS
Mildly reduced left ventricular systolic function.
LV ejection fraction is 40-45% by visual assessment.
Basal to mid inferoseptal and basal and mid inferior hypokinesis.
Moderate left atrial enlargement.
Mitral annular calcification.
Mild mitral regurgitation.
Aortic sclerosis without stenosis.
No prior study available for comparison.
Physical Exam
Vital Signs/Labs
Vital Signs
Temp Pulse Resp BP Pulse Ox
97.3 F 114 22 102/74 99
06/12/24 07:05 06/12/24 06:25 06/12/24 06:21 06/12/24 06:25 06/12/24 06:35
06/11/24 06/12/24 06/13/24
06:59 06:59 06:59
Actual Weight 66.3 kg 63.6 kg
06/12/24 04:29
06/11/24 04:41
PT 18.2 Sec (11.4-14.6) H 06/10/24 03:38
INR 1.48 06/10/24 03:38
APTT 75.6 Sec (23.4-35.0) H 06/12/24 04:23
Magnesium 1.8 mg/dl (1.6-2.3) 06/11/24 04:41
Triglycerides 125 mg/dl (10-149) 06/11/24 04:41
LDL Cholesterol, Calc 60 mg/dl 06/11/24 04:41
VLDL Cholesterol, Calc 25 mg/dl (0-30) 06/11/24 04:41
HDL Cholesterol 28 mg/dl 06/11/24 04:41
06/10/24
03:38
Jbz-[id number]-Gamqtpviuce Pept 7920
LAB Results
06/10/24 06/10/24 06/10/24
03:38 09:35 15:23
Troponin I 0.157 H* 2.460 H* D 12.200 H* D
06/10/24 06/11/24 06/11/24
20:22 03:26 08:00
Troponin I 19.000 H* D 12.200 H* D Cancelled
06/11/24 06/11/24
14:00 20:00
Troponin I Cancelled Cancelled
Physical Exam
Constitutional: No acute distress
Cardiovascular: Pedal edema is absent, JVD pressure is normal, Systolic murmur absent, Diastolic murmur absent and Rhythm/rate is irregular
Respiratory: Respiratory effort normal, Lungs clear to auscul., Wheeze Absent, Crackles Absent and Rhonchi Absent
Neuro/Psych: AO x 3
Data Reviewed
-
Date of Service: June 12, 2024
EKG: Other (Telemetry, rate controlled A-fib)
--- NOTE | 2024-06-12 09:42 | PN.CDI ---
CDI
- -
CDI:
Physician Documentation Request
Admit Date: 06/10/24 06:06
Dear Doctor Do,
Please review the following and provide your response in the progress notes.
Clinical Indicators:
- 06/11 Wound note indicates:
- Stage 3 sacrum pressure injury, POA
- Stage 1 left upper ear pressure injury, POA
Physician documentation of the type and location of wounds is required for compliant documentation. Based on the above clinical findings and your assessment, please provide the following in your progress note:
1. Location of the ulcer/wound, including laterality.
2. Type (etiology) of ulcer/wound:
- Traumatic wound
- Pressure (decubitus) ulcer
- Non-healing surgical wound
- Other
Use of terms such as suspected, likely, concern for, or probable (associated with a specific diagnosis that is being evaluated, monitored, or treated as if it exists) are acceptable and can be coded in the inpatient setting, when documented at the
time of discharge.
Thank you,
Madina Morel RN
CDI Specialist
Please use your independent medical judgment in providing your response.
*Source: National Pressure Ulcer Advisory Panel (NPUAP)
[2024-06-12] MEDS: PROTONIX IV 40 MG IV ×2 (11:24→20:37)
[2024-06-12] MEDS: LAC HYDRIN, AM LACTIN LOTION 1 APPLIC TOPICAL ×2 (11:24→20:38)
[2024-06-12] MEDS: NSS (PRESERVATIVE FREE) 10 ML IV ×2 (11:24→20:37)
[2024-06-12] MEDS: PLAVIX 75 MG PO (11:24)
[2024-06-12] MEDS: MYCOLOG CREAM 1 APPLIC TOPICAL ×3 (11:24→23:56)
[2024-06-12] MEDS: FLORASTOR 250 MG PO ×2 (11:24→20:37)
[2024-06-12] MEDS: LOPRESSOR PO (11:26)
--- NOTE | 2024-06-12 11:58 | PTOTSP ---
Video Swallow Study
Summary: Patient presents with mild-moderate oral, moderate-severe pharyngeal dysphagia, and concern for esophageal dysphagia. Top down and bottom up aspiration risk both elevated. Further discussion re: GOC for nutrition/hydration warranted.
Recommend:
1. NPO pending further GOC discussions.
2. Aspiration Risk Hydration Protocol - single cup sips of water after oral care with supervision
3. Essential medications crushed in puree
4. Oral care 3x daily
5. Dysphagia tx f/u pending GOC
If opting for PO diet understanding risks/complications:
1. L4 puree, L0 thin liquids via single cup sips
2. Strategies: small single sips/bites, intermittent cough/reswallow, remain upright for at least 30 minutes after PO
[2024-06-12] MEDS: XARELTO 15 MG PO (15:00)
--- NOTE | 2024-06-12 15:03 | PTCARENOTE ---
Xarelto given per MAR and heparin gtt stopped per order. Care ongoing at this time.
--- NOTE | 2024-06-12 15:56 | W.CON.PAL ---
Consultation
-
Date/Time Consultation Requested: 06/12/2024
Date/Time Consultation Performed: 06/12/2024 2:30 pm
Requesting Provider: Dr. Corcoran
Performing Provider: Dr. Iyer
Reason for Consult: Goals of Care Discussion
Primary Diagnosis: Dysphagia
Reason for Admission
Illness Course/HPI
Manav is a 88 y/o male with complex medical history including CAD, recent duodenal ulcer repair, admitted with RLL pnuemonia secondary to aspiration. patient did poorly on VSE today, now NPO. additional, NSTEMi with advanced heart disease, cardiac
management limited by CKD.
Palliative consulted for goals
Patient upset and overwhelmed with news from today. Unable to make decisions without present. attending dialysis this afternoon, will try to come to hospital later today. Called from the room so that we could talk togehter. had
been updated about VSE resutls earlier today
Functional Status
Patient has been very ill over the past month with recent surgery
Lives with his , they have caregivers during the day. they have a niece who helps them with appointments.
Goals of Care Discussion
-
Individuals Present for Discussion & Relationship to Patient:
Patient, over the phone
Patient able to participate in discussion at time of visit: Yes
Patient's Information Preferences: Unsure
Patient Goals
Discussed findings of VSE - unable to safely give food and meds. Unfortunately due to cardaic and recent GI surgery, likely would not be a candiadate for tube. Main option would be comfort feeds as patient wishes to be able to eat.
Strongly recommended hospice to both patient and .
We also discussed code status, strongly recommended change to DNR
No decisions made as wants to speak with attending when she tries to get to hospital later today.
Pain & Symptom Assessment
-
patient overwhelmed. deneis pain or dyspnea at present. anxious
Objective Data
-
Objective Data:
Vital Signs
Temp Pulse Resp BP Pulse Ox
97.7 F 108 20 106/81 97
06/12/24 11:46 06/12/24 14:00 06/12/24 14:00 06/12/24 14:00 06/12/24 14:00
Laboratory Results
06/12/24 04:29
06/11/24 04:41
PT 18.2 Sec (11.4-14.6) H 06/10/24 03:38
INR 1.48 06/10/24 03:38
APTT 75.6 Sec (23.4-35.0) H 06/12/24 04:23
Hemoglobin A1c 6.2 % (4.0-5.6) H 06/10/24 09:35
Total Protein 6.4 g/dl (6.3-8.2) 06/10/24 03:38
Albumin 2.7 g/dl (3.5-5.0) L 06/10/24 03:38
Urine Color Erin 06/10/24 03:40
Urine Clarity Slightly cloudy (Clear) 06/10/24 03:40
Urine pH 5.0 (5.0-9.0) 06/10/24 03:40
Ur Specific [place] 1.025 (<1.030) 06/10/24 03:40
Urine Ketones 1+ (Negative) A 06/10/24 03:40
Urine Bilirubin 1+ (Negative) A 06/10/24 03:40
Palliative Performance Scale
Palliative Performance Scale:
PPS Level Ambulation Activity & Evidence of Disease Self Care Intake Conscious Level
100% Full Normal Activity & Work; Full Intake Full
No Evidence of Disease
90% Full Normal Activity & Work; Full Normal Full
Some Evidence of Disease
80% Full Normal Activity with Effort Full Normal or Full
Some Evidence of Disease Reduced
70% Reduced Unable Normal Job/Work Full Normal or Full
Significant Disease Reduced
60% Reduced Unable Hobby/Housework Occasional Normal or Full or Confusion
Significant Disease Assistance Reduced
50% Mainly Sit/Lie Unable to do Any Work Considerable Normal or Full or Confusion
Extensive Disease Assistance Req'd Reduced
40% Mainly in Bed Unable to do Most Activity Mainly Assistance Normal or Full or Drowsy;
Extensive Disease Reduced +/- Confusion
30% Totally Bed Unable to do Any Activity Total Care Normal or Full or Drowsy;
Bound Extensive Disease Reduced +/- Confusion
20% Totally Bed Bound Unable to do Any Activity Total Care Minimal to Full or Drowsy;
Extensive Disease Sips +/- Confusion
10% Totally Bed Bound Unable to do Any Activity Total Care Mouth Care Drowsy or Coma;
Extensive Disease Only +/- Confusion
0%
PPS Score Level:
Palliative Performance Score Response
Palliative Performance Score Response: 40%
Physical Exam
-
General: No Apparent Distress
Neuro: Awake and Alert
Psych: Anxious
Assessment / Plan
-
Assessment/Plan:
Patient and understand gravity of overall medical condition
recommended hospice care, change in code status to DNR
is at dialysis at this time, plans to arrive later today.
total floor time 60 min
--- NOTE | 2024-06-12 16:10 | PTCARENOTE ---
Patient AOx3. Patient tearful at times throughout shift regarding plan of care. Emotional support provided to patient. Patient on RA with SpO2 greater than 92%. Patient a fib on monitor. Chronic carrasquillo draining yellow/humberto urine. Incontinent of
loose diarrhea throughout shift. NPO due to VSE. Wound care completed per order. IVF running per order. Call preston within reach, bed in lowest position, bed wheels locked.
--- NOTE | 2024-06-12 17:14 | CM ---
Patient from [facility] with Hx recent repair perforated duodenal ulcer. O2 2L. Receiving IVF, IV Abx. PT/OT recommend skilled rehab. Seen by Palliative Care today for GOC.
Plan return to [facility] when medically ready.
[2024-06-12] MEDS: LIPITOR 10 MG PO (23:55)
[2024-06-13] VITALS (11 sets, daily range): BP systolic 84–118; BP diastolic 59–83; BMI 22.4
[2024-06-13] MEDS: ZOSYN 50 IV ×5 (00:05→23:28)
--- NOTE | 2024-06-13 00:57 | PTCARENOTE ---
Patient AAOx3, hard of hearing, anxious at times. Family at the bedside at change of shift. Pt 96% O2 sat on room air. A-fib on tele. Chronic carrasquillo draining yellow urine. Wound care completed per order. IV abx given. Pt tolerating Q2 hour turns.
Call preston is within reach.
[2024-06-13 05:49] LABS: Blood Urea Nitrogen 25 mg/dl (9-20); Calcium 7.8 mg/dl (8.4-10.2); Carbon Dioxide 21 mmol/L (22-30); Chloride 114 mmol/L (98-107); Estimated Creatinine Clearance 38 ml/min; Glucose 68 mg/dl (70-99); Potassium 3.5 mmol/L (3.5-5.1); Sodium 146 mmol/L (135-145); eGFR 52.84
[2024-06-13] MEDS: LOPRESSOR PO ×2 (06:13→23:28)
--- NOTE | 2024-06-13 09:01 | W.PN.HOSP.TC ---
Today's Communication/Plan
-
Continue antibiotics
Continue goals of care discussion, consult hospice
CODE STATUS changed to DNR
Assessment / Plan
Assessment / Plan
88y M with PMH significant for ASCVD, A-Fib and recent duodenal ulcer s/p repair who presents to ED complaining of burning epigastric pain and SOB. Patient is currently in SNF at [facility]. He was originally hospitalized at [place] in
April for perforated duodenal ulcer and underwent ex alp and repair at that time. He was discharged to SNF in [place] from 04/20 - 05/21 and then discharged to home. He did not do well at home and was admitted to [facility] on 06/01
for continued therapy / recovery.
Patient states that he developed a cough a few days ago. He has difficulty expectorating / bringing up mucus. He had a CXR done on 06/08/24 that was read as RLL Pneumonia and he was started on abx with cefuroxime at that time.
RLL Pneumonia
Sepsis secondary to the above
Lactic Acidosis secondary to the above
- Continue IV Zosyn D4, mucolytics, supportive care
- Trend fever and white count, blood cultures negative to date
Dysphagia
- SPL recommends n.p.o. until VSE
- 06/12 VSE shows aspiration, SPL rec GOC
- Can have essential meds in pur�e and single sips of water with supervision for comfort
- 06/12, goals of care conversations initiated by myself with patient and
- Seen by palliative care, who recommends DNR status and hospice
- 06/13, had family meeting, patient and family agreed to DNR status, consult hospice
ACS/NSTEMI
ASCVD
- Appreciate cardiology input, recommend medical management. Troponin peaked at 12.2
- Status post IV heparin drip, now back on Xarelto, Plavix added 06/11, aspirin discontinued
- Continue statin and beta-scout
Chronic heart failure with reduced ejection fraction
- EF 40-45%
- Hold diuretics due to sepsis and NPO status
Atrial Fibrillation with Rapid Ventricular Response
- Appreciate cardiology input, metoprolol decreased to 25 mg every 6 hours
- Hold Xarelto for now while on IV heparin.
Hypotension
- Gentle IV fluids, midodrine as needed MAP less than 65
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
- SCr = 1,3 was 1.6, was 1.8 and NH notes recent SCr = 1.4.
- Gentle IVFs, hold Lasix, trend Cr
Duodenal Ulcer
GERD
- s/p ex lap and duodenal ulcer repair in April at [place].
- IV PPI BID
Glucose intolerance
- Hemoglobin A1c 6.2
BPH
Neurogenic Bladder
- Carrasquillo in place. Maintain.
- UA noted - RBCs and WBCs in equal numbers. Nitrites negative.
- Urine cultures growing 100,000 colonies gram-negative rods, likely colonization from chronic carrasquillo
Stage 3 sacrum pressure injury, POA
Stage 1 left upper ear pressure injury, POA
-wound care, offloading
DVT Prophylaxis: Xarelto
Code Status: Full
Updated on phone 06/12
Updated and 2 nieces at bedside at family meeting 06/13
Total time spent to see the patient on the floor, examine the patient, review data and lab results, discuss treatment plan with patient, nursing staff around 63 minutes.
Physical Exam
General: Frail, elderly, appears chronically ill, but in no acute distress
HEENT: Normocephalic, Atraumatic, EOMI, DMM
Respiratory: Right basilar rhonchi
Cardiac: Normal S1/S2, intermittently tachycardic rate, irregular rhythm
GI: Soft, Nontender, Nondistended, Normal Bowel Sounds
Extremities: No Clubbing, Cyanosis
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
Neuro: Nonfocal/Grossly Intact
Derm: Diffuse ecchymosis of upper extremities
Anticipated Discharge: > 48 hours
Subjective/Interval History
-
Date of Service: June 13, 2024
Continues to cough, improved from prior. Denies shortness of breath, denies chest pain, denies palpitations. No fever, no vomiting.
Objective Data
-
Labs:
Laboratory Results
06/12/24 06/13/24
21:35 04:34
APTT Cancelled
Sodium 146 H
Potassium 3.5
Chloride 114 H
Carbon Dioxide 21 L
BUN 25 H
Creatinine 1.3
Glucose 68 L
Calcium 7.8 L
Vital Signs:
Vital Signs
Temp Pulse Resp BP Pulse Ox
97.6 F 91 23 96/59 94
06/13/24 07:10 06/13/24 04:00 06/13/24 04:00 06/13/24 04:00 06/13/24 04:00
I&O
06/12/24 06/13/24 06/14/24
06:59 06:59 06:59
Intake Total 2500 / 2500 960 / 960
Output Total 1100 / 1100 400 / 400
Balance 1400 / 1400 560 / 560
[2024-06-13] MEDS: LAC HYDRIN, AM LACTIN LOTION 1 APPLIC TOPICAL ×2 (09:14→20:17)
[2024-06-13] MEDS: MYCOLOG CREAM 1 APPLIC TOPICAL ×3 (09:14→20:17)
[2024-06-13] MEDS: FLORASTOR 250 MG PO ×2 (09:15→20:35)
[2024-06-13] MEDS: NSS (PRESERVATIVE FREE) 10 ML IV ×2 (09:15→20:17)
[2024-06-13] MEDS: PROTONIX IV 40 MG IV ×2 (09:15→20:17)
[2024-06-13] MEDS: PLAVIX 75 MG PO (09:15)
[2024-06-13] MEDS: 0.45% NACL with KCL 20 MEQ 1000 IV ×2 (10:11→21:42)
[2024-06-13] MEDS: LOPRESSOR 25 MG PO ×2 (11:47→18:36)
--- NOTE | 2024-06-13 12:24 | W.PN.CD ---
Today's Communication / Plan
-
-Back on adequate medications with Xarelto and Plavix along with metoprolol and Lipitor
-Please call with questions
Impression / Plan
-
PNA, sepsis:
-on abx
-management per primary
-Palliative care is following
NSTEMI:
-this diagnosis is threat to life
-CP free at present
-Patient typically on Plavix/Xarelto - Back on it.
-maintain on heparin gtt, which requires intensive monitoring until this evening and then transition to Xarelto 15 mg daily.
-Echo below
-would not plan for cardiac cath at this time (active PNA, no CP, abnormal creatinine, frail/elderly)- risk greater than benefit currently
-Beta-scout
CAD with hx stenting:
-on Plavix/Xarelto as OP. Currently on ASA/heparin.
-plan as above
AFIB:
-type unknown- continue metoprolol as BP will tolerate- follow tele.
-Rates reasonable, has not been getting metoprolol due to holding parameters. I reduced the dose yesterday, did get 3 out of 4 doses. Will continue to monitor with eventual transition to succinate when able.
Heart failure with mildly reduced ejection fraction type unknown:
-Chronic
-does not appear volume overloaded to assessment
-GDMT limited by CKD and BP
Right lower lobe pneumonia care per medicine
Subjective:
He has not had any further chest pain. He denies sob.
TTE 06/11/2024 CONCLUSIONS
Mildly reduced left ventricular systolic function.
LV ejection fraction is 40-45% by visual assessment.
Basal to mid inferoseptal and basal and mid inferior hypokinesis.
Moderate left atrial enlargement.
Mitral annular calcification.
Mild mitral regurgitation.
Aortic sclerosis without stenosis.
No prior study available for comparison.
Physical Exam
Vital Signs/Labs
Vital Signs
Temp Pulse Resp BP Pulse Ox
97.6 F 91 23 96/59 97
06/13/24 07:10 06/13/24 04:00 06/13/24 04:00 06/13/24 04:00 06/13/24 10:27
06/12/24 06/13/24 06/14/24
06:59 06:59 06:59
Actual Weight 63.6 kg 68.9 kg
06/12/24 04:29
06/13/24 04:34
PT 18.2 Sec (11.4-14.6) H 06/10/24 03:38
INR 1.48 06/10/24 03:38
APTT Cancelled 06/12/24 21:35
Magnesium 1.8 mg/dl (1.6-2.3) 06/11/24 04:41
Triglycerides 125 mg/dl (10-149) 06/11/24 04:41
LDL Cholesterol, Calc 60 mg/dl 06/11/24 04:41
VLDL Cholesterol, Calc 25 mg/dl (0-30) 06/11/24 04:41
HDL Cholesterol 28 mg/dl 06/11/24 04:41
06/10/24
03:38
Amn-H-Shiesioxjcj Pept 7920
LAB Results
06/10/24 06/10/24 06/11/24
15:23 20:22 03:26
Troponin I 12.200 H* D 19.000 H* D 12.200 H* D
06/11/24 06/11/24 06/11/24
08:00 14:00 20:00
Troponin I Cancelled Cancelled Cancelled
Physical Exam
Constitutional: No acute distress and Confusion
EENT: Anicteric and Moist mucous membranes
Cardiovascular: Rhythm/rate is irregular and Systolic murmur present
Respiratory: Respiratory effort normal and Lungs clear to auscul.
Neuro/Psych: Alert and Oriented
Data Reviewed
-
Date of Service: June 13, 2024
Medical Decision Making: Reviewed Test Results
EKG: Tracing Personally Visualized and interpreted
Echo: Report Reviewed by me
Labs: Labs Reviewed by me
Old Records: Reviewed
--- NOTE | 2024-06-13 17:37 | PTCARENOTE ---
Pt presents as assessed. Pt and family discussing GOC throughout the day. Questions answered at length by this RN and CM. Pt made DNR- purple bracelet applied.
[2024-06-13] MEDS: XARELTO 15 MG PO (18:36)
--- NOTE | 2024-06-13 19:52 | HOSPNOTE ---
Recieved a message that family would like to talk about hospice. In person introduction planned for tomorrow. Reviewed if patient transitions to comfort- can assess for gip eligibility 24 hours later, if patient is not appropriate for comfort/gip
then the plan would be for patient to dc to home with hospice agency in their area. More information after intro tomorrow to follow.
[2024-06-13] MEDS: LIPITOR 10 MG PO (20:17)
[2024-06-14] VITALS (13 sets, daily range): BP systolic 87–117; BP diastolic 56–91; BMI 21.7
[2024-06-14 04:58] LABS: Hemoglobin 11.7 g/dL (13.0-18.0); Mean Corp Hgb Conc. 31.6 g/dL (33.0-37.0); Mean Corpuscular Hgb 30.3 pg (27.0-31.0); Mean Corpuscular Volume 95.9 fL (80.0-94.0); Mean Platelet Volume 9.7 fL (7.4-10.4); Platelet Count 285 10^3/uL (130-400); Red Blood Cell Count 3.86 10^6/uL (4.70-6.10); Red Cell Dist. Width 15.8 % (11.5-14.5); White Blood Cell Count 6.8 10^3/uL (4.8-10.8)
[2024-06-14 05:04] LABS: Blood Urea Nitrogen 22 mg/dl (9-20); Calcium 7.9 mg/dl (8.4-10.2); Carbon Dioxide 19 mmol/L (22-30); Chloride 112 mmol/L (98-107); Estimated Creatinine Clearance 37 ml/min; Glucose 53 mg/dl (70-99); Potassium 3.9 mmol/L (3.5-5.1); Sodium 141 mmol/L (135-145); eGFR 52.84
[2024-06-14 05:18] LABS: Glucose - Point of Care 47 mg/dl (70-99)
[2024-06-14] MEDS: DEXTROSE 50% SYRINGE 12.5 GRAMS IV (05:26)
[2024-06-14] MEDS: D5/0.45%NSS with KCL 20 MEQ 1000 IV (05:40)
[2024-06-14] MEDS: ZOSYN 50 IV ×4 (05:40→23:59)
[2024-06-14] MEDS: LOPRESSOR 25 MG PO ×3 (05:48→17:12)
[2024-06-14 06:02] LABS: Glucose - Point of Care 93 mg/dl (70-99)
--- NOTE | 2024-06-14 06:20 | PTCARENOTE ---
Patient hypoglycemic with morning labs. Hypoglycemia protocol followed.
--- NOTE | 2024-06-14 08:03 | W.PN.HOSP.TC ---
Today's Communication/Plan
-
Trial of comfort feeds, continue current medications
Plan for home with hospice once arranged
Assessment / Plan
Assessment / Plan
88y M with PMH significant for ASCVD, A-Fib and recent duodenal ulcer s/p repair who presents to ED complaining of burning epigastric pain and SOB. Patient is currently in SNF at [facility]. He was originally hospitalized at [place] in
April for perforated duodenal ulcer and underwent ex alp and repair at that time. He was discharged to SNF in [place] from 04/20 - 05/21 and then discharged to home. He did not do well at home and was admitted to [facility] on 06/01
for continued therapy / recovery.
Patient states that he developed a cough a few days ago. He has difficulty expectorating / bringing up mucus. He had a CXR done on 06/08/24 that was read as RLL Pneumonia and he was started on abx with cefuroxime at that time.
RLL Pneumonia
Sepsis secondary to the above
Lactic Acidosis secondary to the above
- Continue IV Zosyn D5, mucolytics, supportive care
- Trend fever and white count, blood cultures negative to date
Dysphagia
- SPL recommends n.p.o. until VSE
- 06/12 VSE shows aspiration, SPL rec GOC
- Can have essential meds in pur�e and single sips of water with supervision for comfort
- 06/12, goals of care conversations initiated by myself with patient and
- Seen by palliative care, who recommends DNR status and hospice
- 06/13, had family meeting, patient and family agreed to DNR status
- 06/14, family met with hospice, plan for home with hospice
- Patient wishes to pass at home
- Continue IV fluids, IV antibiotics, medications while in the hospital so he can be stable for transfer home
ACS/NSTEMI
ASCVD
- Appreciate cardiology input, recommend medical management. Troponin peaked at 12.2
- Status post IV heparin drip, now back on Xarelto, Plavix added 06/11, aspirin discontinued
- Continue statin and beta-scout
Chronic heart failure with reduced ejection fraction
- EF 40-45%
- Hold diuretics due to sepsis and NPO status
Atrial Fibrillation with Rapid Ventricular Response
- Appreciate cardiology input, metoprolol decreased to 25 mg every 6 hours
- Hold Xarelto for now while on IV heparin.
Hypotension
- Gentle IV fluids, midodrine as needed MAP less than 65
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
- SCr = 1,3 was 1.6, was 1.8 and NH notes recent SCr = 1.4.
- Gentle IVFs, hold Lasix, trend Cr
Hypoglycemia
-IV fluids changed to dextrose in half-normal saline and sodium bicarb
Duodenal Ulcer
GERD
- s/p ex lap and duodenal ulcer repair in April at [place].
- IV PPI BID
Glucose intolerance
- Hemoglobin A1c 6.2
BPH
Neurogenic Bladder
- Carrasquillo in place. Maintain.
- UA noted - RBCs and WBCs in equal numbers. Nitrites negative.
- Urine cultures growing 100,000 colonies gram-negative rods, likely colonization from chronic acrrasquillo
Stage 3 sacrum pressure injury, POA
Stage 1 left upper ear pressure injury, POA
-wound care, offloading
DVT Prophylaxis: Xarelto
Code Status: Full
Updated and 2 nieces at bedside at family meeting 06/13
Updated at bedside 06/14
Total time spent to see the patient on the floor, examine the patient, review data and lab results, discuss treatment plan with patient, nursing staff around 53 minutes.
Physical Exam
General: Frail, elderly, appears chronically ill, but in no acute distress
HEENT: Normocephalic, Atraumatic, EOMI, DMM
Respiratory: Right basilar rhonchi
Cardiac: Normal S1/S2, intermittently tachycardic rate, irregular rhythm
GI: Soft, Nontender, Nondistended, Normal Bowel Sounds
Extremities: No Clubbing, Cyanosis
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
Neuro: Nonfocal/Grossly Intact
Derm: Diffuse ecchymosis of upper extremities
Anticipated Discharge: 24 - 48 hours
Subjective/Interval History
-
Date of Service: June 14, 2024
Patient reports his cough is improved. Denies shortness of breath. No fever, no vomiting. No chest pain, no palpitations.
Objective Data
-
Labs:
Laboratory Results
06/14/24
04:11
WBC 6.8
Hgb 11.7 L
Hct 37.0 L
Plt Count 285 D
Sodium 141
Potassium 3.9
Chloride 112 H
Carbon Dioxide 19 L
BUN 22 H
Creatinine 1.3
Glucose 53 L*
Calcium 7.9 L
Vital Signs:
Vital Signs
Temp Pulse Resp BP Pulse Ox
97.6 F 102 22 87/63 93
06/14/24 03:22 06/14/24 06:00 06/14/24 06:00 06/14/24 06:00 06/14/24 06:00
I&O
06/13/24 06/14/24 06/15/24
06:59 06:59 06:59
Intake Total 960 / 960 960 / 960
Output Total 400 / 400 350 / 350
Balance 560 / 560 610 / 610
[2024-06-14 08:25] LABS: Glucose - Point of Care 71 mg/dl (70-99)
[2024-06-14] MEDS: NSS (PRESERVATIVE FREE) 10 ML IV ×2 (09:11→20:46)
[2024-06-14] MEDS: PLAVIX 75 MG PO (09:11)
[2024-06-14] MEDS: PROTONIX IV 40 MG IV ×2 (09:11→20:46)
[2024-06-14] MEDS: FLORASTOR 250 MG PO ×2 (09:11→20:45)
[2024-06-14] MEDS: SODIUM BICARBONATE 1075 MEQ IV ×2 (09:12→23:53)
[2024-06-14] MEDS: LAC HYDRIN, AM LACTIN LOTION 1 APPLIC TOPICAL ×2 (09:13→20:47)
[2024-06-14] MEDS: MYCOLOG CREAM 1 APPLIC TOPICAL ×3 (09:13→20:46)
[2024-06-14 10:30] LABS: Glucose - Point of Care 78 mg/dl (70-99)
[2024-06-14 12:05] LABS: Glucose - Point of Care 78 mg/dl (70-99)
--- NOTE | 2024-06-14 13:02 | HOSPNOTE ---
Request for in person introduction received. In person intro completed. Patient and would like for patient to go home with hospice services. They were not interested in comfort measures as there was chance that patient would not make it home if
that occurred and his wish is to go home. Reviewed with attending and CM- medications will continue while patient is in the hospital and the plan is to work on getting patient home with hospice with a hospice agency that services their area along
with private caregivers. CM and Attending aware. Hospice will sign off as patient will be going home which is not within our service area.
--- NOTE | 2024-06-14 13:51 | W.PN.CD ---
Today's Communication / Plan
-
Continue supportive care
Impression / Plan
-
PNA, sepsis:
-on abx
-management per primary
-Palliative care is following
NSTEMI:
-this diagnosis is threat to life
-CP free at present
-Patient typically on Plavix/Xarelto - Back on it.
-maintain on heparin gtt, which requires intensive monitoring until this evening and then transition to Xarelto 15 mg daily.
-Echo below
-would not plan for cardiac cath at this time (active PNA, no CP, abnormal creatinine, frail/elderly)- risk greater than benefit currently
-Beta-scout
CAD with hx stenting:
-on Plavix/Xarelto as OP. Currently on ASA/heparin.
-plan as above
AFIB:
-type unknown- continue metoprolol as BP will tolerate- follow tele.
-Rates reasonable, has not been getting metoprolol due to holding parameters. I reduced the dose yesterday, did get 3 out of 4 doses. Will continue to monitor with eventual transition to succinate when able.
Heart failure with mildly reduced ejection fraction type unknown:
-Chronic
-does not appear volume overloaded to assessment
-GDMT limited by CKD and BP
Right lower lobe pneumonia care per medicine
Subjective:
He has not had any further chest pain. He denies sob.
TTE 06/11/2024 CONCLUSIONS
Mildly reduced left ventricular systolic function.
LV ejection fraction is 40-45% by visual assessment.
Basal to mid inferoseptal and basal and mid inferior hypokinesis.
Moderate left atrial enlargement.
Mitral annular calcification.
Mild mitral regurgitation.
Aortic sclerosis without stenosis.
No prior study available for comparison.
Physical Exam
Vital Signs/Labs
Vital Signs
Temp Pulse Resp BP Pulse Ox
96.9 F L 102 22 87/63 97
06/14/24 07:30 06/14/24 06:00 06/14/24 06:00 06/14/24 06:00 06/14/24 09:28
06/13/24 06/14/24 06/15/24
06:59 06:59 06:59
Actual Weight 68.9 kg 66.5 kg
06/14/24 04:11
06/14/24 04:11
PT 18.2 Sec (11.4-14.6) H 06/10/24 03:38
INR 1.48 06/10/24 03:38
APTT Cancelled 06/12/24 21:35
Magnesium 1.8 mg/dl (1.6-2.3) 06/11/24 04:41
Triglycerides 125 mg/dl (10-149) 06/11/24 04:41
LDL Cholesterol, Calc 60 mg/dl 06/11/24 04:41
VLDL Cholesterol, Calc 25 mg/dl (0-30) 06/11/24 04:41
HDL Cholesterol 28 mg/dl 06/11/24 04:41
06/10/24
03:38
Vzb-U-Nsbsdrcpvzr Pept 7920
Physical Exam
Constitutional: No acute distress and Comfortable
EENT: Anicteric and Moist mucous membranes
Cardiovascular: Rhythm & rate is regular and JVD pressure is normal
Respiratory: Crackles Absent and Labored respirations
GI: Soft, Non tender and Normal bowel sounds
Neuro/Psych: Alert, Oriented and AO x 3
Data Reviewed
-
Date of Service: June 14, 2024
Medical Decision Making: Reviewed Test Results
EKG: Tracing Personally Visualized and interpreted
Echo: Report Reviewed by me
Labs: Labs Reviewed by me
Old Records: Reviewed
--- NOTE | 2024-06-14 15:35 | CM ---
CM following re: d/c planning.
CM c/s, as plan is for home hospice. etcher apprentice photoengraving met with pt and family.
However, hospice does not go out to [place].
CM met with pt, , and niece at bedside.
They are agreeable to use [facility].
Referral sent, CM spoke with Risa, who will be outreaching to today.
CM confirmed they do travel to [place].
Supplemental care list provided also, they are aware hospice is not there 28/01.
CM answered all questions and provided emotional support.
Goal: home with [facility], pending arrangements.
--- NOTE | 2024-06-14 16:59 | PTOTSP ---
Speech Therapy f/u dysphagia tx:
SPIDER ASSEMBLER chart reviewed pt and spoke to RN/MD prior to f/u tx session. Per medical team, pt's family opting for comfort feeds and accepting the risk of aspiration with plan for home hospice. Pt continues with cough at baseline. At bedside, pt declined
pureed trials as he does not like applesauce, however accepted small sips of thin liquids via cup with intermittent s/sx of aspiration. Known risk per VSE.
As family opting for PO diet with known risks of aspiration, recommend:
1. L4 puree, L0 thin liquids via single cup sips
2. Aspiration precautions: small single sips/bites, intermittent cough/reswallow, remain upright for at least 30 minutes after PO
3. Medications as tolerated
4. ST to follow
[2024-06-14] MEDS: XARELTO 15 MG PO (17:12)
[2024-06-14 19:29] LABS: Glucose - Point of Care 114 mg/dl (70-99)
--- NOTE | 2024-06-14 21:37 | PTCARENOTE ---
Pt received from previous RN. Pt Brad HOYT, RN assisted pt in calling to say rebecca. Pt afib on monitor. chronic carrasquillo draining yellow urine. Assessment as documented. Call light in reach. Safe environment maintained.
[2024-06-14] MEDS: LIPITOR 10 MG PO (21:55)
[2024-06-15] VITALS (12 sets, daily range): BP systolic 95–140; BP diastolic 62–123; BMI 23.0
[2024-06-15] MEDS: LOPRESSOR 25 MG PO ×4 (00:06→18:17)
[2024-06-15 00:19] LABS: Glucose - Point of Care 147 mg/dl (70-99)
[2024-06-15 03:12] LABS: Glucose - Point of Care 136 mg/dl (70-99)
[2024-06-15] MEDS: ZOSYN 50 IV ×3 (05:24→20:05)
[2024-06-15 06:42] LABS: Blood Urea Nitrogen 18 mg/dl (9-20); Calcium 6.9 mg/dl (8.4-10.2); Carbon Dioxide 26 mmol/L (22-30); Chloride 113 mmol/L (98-107); Estimated Creatinine Clearance 46 ml/min; Glucose 139 mg/dl (70-99); Potassium 3.2 mmol/L (3.5-5.1); Sodium 142 mmol/L (135-145); eGFR > 60.00
[2024-06-15 07:11] LABS: Glucose - Point of Care 128 mg/dl (70-99)
[2024-06-15] MEDS: CALCIUM GLUCONATE 100 IV (07:26)
[2024-06-15] MEDS: KCL 270 MEQ IV (07:27)
--- NOTE | 2024-06-15 10:00 | W.PN.HOSP.TC ---
Addendum entered and electronically signed by Ambrosio Kennedy MD 06/15/24 10:08:
Hypernatremia, resolved
Hypocalcemia, c/w IVF
Lactic acidosis, resolved
End
Original Note:
Today's Communication/Plan
-
dc
Assessment / Plan
Assessment / Plan
88y M with PMH significant for ASCVD, A-Fib and recent duodenal ulcer s/p repair who presents to ED complaining of burning epigastric pain and SOB. Patient is currently in SNF at [facility]. He was originally hospitalized at [place] in
April for perforated duodenal ulcer and underwent ex alp and repair at that time. He was discharged to SNF in [place] from 04/20 - 05/21 and then discharged to home. He did not do well at home and was admitted to [facility] on 06/01
for continued therapy / recovery.
Patient states that he developed a cough a few days ago. He has difficulty expectorating / bringing up mucus. He had a CXR done on 06/08/24 that was read as RLL Pneumonia and he was started on abx with cefuroxime at that time.
RLL Pneumonia
Sepsis secondary to the above
Lactic Acidosis secondary to the above
- Continue IV Zosyn D6, mucolytics, supportive care
- No fevers. No worsening hypoxia.
blood cultures negative to date
Dysphagia
- SPL recommends n.p.o. until VSE
- 06/12 VSE shows aspiration, SPL rec GOC
- Can have essential meds in pur�e and single sips of water with supervision for comfort
- 06/12, goals of care conversations initiated by myself with patient and
- Seen by palliative care, who recommends DNR status and hospice
- 06/13, had family meeting, patient and family agreed to DNR status
- 06/14, family met with hospice, plan for home with hospice
- Patient wishes to pass at home
- s/p IV fluids, IV antibiotics, medications while in the hospital so he can be stable for transfer home
ACS/NSTEMI
ASCVD
- Appreciate cardiology input, recommend medical management. Troponin peaked at 12.2
- Status post IV heparin drip, now back on Xarelto, Plavix added 06/11, aspirin discontinued
- Continue statin and beta-scout
Chronic heart failure with reduced ejection fraction
- EF 40-45%
- Hold diuretics due to sepsis and NPO status
Atrial Fibrillation with Rapid Ventricular Response
- Appreciate cardiology input, metoprolol decreased to 25 mg every 6 hours
- Held Xarelto for now while on IV heparin. Back on Xarelto.
Hypotension, septic shock , resolved.
- Gentle IV fluids, midodrine as needed MAP less than 65
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
- SCr = 1,3 was 1.6, was 1.8 and NH notes recent SCr = 1.1 upon dc
- s/p IVFs, held Lasix,
Hypoglycemia
-IV fluids changed to dextrose in half-normal saline and sodium bicarb
Duodenal Ulcer
GERD
- s/p ex lap and duodenal ulcer repair in April at [place].
- s/p IV PPI BID
Glucose intolerance
- Hemoglobin A1c 6.2
Goal is comfort at this point
BPH
Neurogenic Bladder
- Chiang in place. Maintain for comfort measures.
- UA noted - RBCs and WBCs in equal numbers. Nitrites negative.
- Urine cultures growing 100,000 colonies gram-negative rods, likely colonization from chronic Chiang
Stage 3 sacrum pressure injury, POA
Stage 1 left upper ear pressure injury, POA
-wound care, offloading
DVT Prophylaxis: Xarelto
Code Status: Full
Total discharge time spent to see the patient on the floor, examine the patient, review data and lab results, discuss discharge plan with patient, case consultant, nursing staff around 67 minutes.
Physical Exam
General: Frail, elderly, appears chronically ill, but in no acute distress
HEENT: Normocephalic, Atraumatic, EOMI, DMM
Respiratory: Right basilar rhonchi
Cardiac: Normal S1/S2, intermittently tachycardic rate, irregular rhythm
GI: Soft, Nontender, Nondistended, Normal Bowel Sounds
Extremities: No Clubbing, Cyanosis
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
Neuro: Nonfocal/Grossly Intact
Derm: Diffuse ecchymosis of upper extremities
Psych: calm
Anticipated Discharge: Today
Subjective/Interval History
-
Date of Service: June 15, 2024
No chest pain
No abd pain
Objective Data
-
Labs:
Laboratory Results
06/15/24
05:42
Sodium 142
Potassium 3.2 L
Chloride 113 H
Carbon Dioxide 26
BUN 18
Creatinine 1.1
Glucose 139 H
Calcium 6.9 L*
Vital Signs:
Vital Signs
Temp Pulse Resp BP Pulse Ox
97.5 F 99 29 98/62 95
06/15/24 07:02 06/15/24 06:10 06/15/24 06:10 06/15/24 05:23 06/15/24 06:10
I&O
06/14/24 06/15/24 06/16/24
06:59 06:59 06:59
Intake Total 960 / 960 360 / 360
Output Total 350 / 350 325 / 325
Balance 610 / 610 35 / 35
[2024-06-15] MEDS: FLORASTOR 250 MG PO ×2 (10:10→20:04)
[2024-06-15] MEDS: LAC HYDRIN, AM LACTIN LOTION 1 APPLIC TOPICAL ×2 (10:11→20:16)
[2024-06-15] MEDS: NSS (PRESERVATIVE FREE) 10 ML IV ×2 (10:11→20:05)
[2024-06-15] MEDS: PLAVIX 75 MG PO (10:11)
[2024-06-15] MEDS: PROTONIX IV 40 MG IV ×2 (10:11→20:04)
[2024-06-15] MEDS: MYCOLOG CREAM 1 APPLIC TOPICAL ×3 (10:12→22:52)
--- NOTE | 2024-06-15 11:44 | CM ---
Patient from [facility] with Hx recent repair perforated duodenal ulcer. Room air. Receiving IVF, IV Zosyn. Dysphagia diet. Mariia. Seen by wound care nurse.
Patient seen by Hospice yesterday.
Met with patient, Joslyn and niece Amber Saha ([place], cell [phone]);
Patient awake but did not participate in the conversation.
confirmed that would like home with [facility].
Extensive discussion about hiring a caregiver at home; has the name of 4 companies and has reached out to 3 of them for pricing, however has not asked the agencies about caregiver availability. is considering 24 hr care. Encouraged her
to line up a caregiver today. Niece will be visiting patient at home to make sure he is kept comfortable.
Added Shannan, Intake [facility] on speaker phone in patient room; hospice will call patient's DME company that provided his hospital bed at home and have that order switched to hospice. They will order an air mattress, home O2 which will be
delivered to the patient's home this evening.
Shannan confirms that they have an available nurse for tomorrow if family is ready for d/c.
They will use their own comfort kit as needed.
Shannan was made aware that family has not set up caregivers yet.
will not be coming in tomorrow as she has dialysis. IMM completed.
OOH DNR on chart.
Plan home once caregiver arrangements are completed by family, with [facility], by ambulance.
[2024-06-15] MEDS: SODIUM BICARBONATE IV (12:26)
[2024-06-15] MEDS: D5/0.45%NACL 1000 IV (15:29)
[2024-06-15] MEDS: XARELTO 15 MG PO (18:17)
--- NOTE | 2024-06-15 20:13 | PTCARENOTE ---
patient transferred via stretcher to bed. 2L NC maintained and suctions himself orally PRN, vss, oriented to new room and call [place]. will continue to monitor.
[2024-06-16] MEDS: LOPRESSOR 25 MG PO ×3 (00:33→13:04)
[2024-06-16] MEDS: ZOSYN 50 IV ×3 (02:24→13:17)
[2024-06-16] MEDS: D5/0.45%NACL 1000 IV (05:02)
[2024-06-16 07:39] VITALS: BP 108/63
[2024-06-16] MEDS: PROTONIX IV 40 MG IV (08:30)
[2024-06-16] MEDS: NSS (PRESERVATIVE FREE) 10 ML IV (08:31)
[2024-06-16] MEDS: FLORASTOR 250 MG PO (08:33)
[2024-06-16] MEDS: PLAVIX 75 MG PO (08:33)
[2024-06-16] MEDS: LAC HYDRIN, AM LACTIN LOTION 1 APPLIC TOPICAL (08:34)
[2024-06-16] MEDS: MYCOLOG CREAM 1 APPLIC TOPICAL (08:35)
--- NOTE | 2024-06-16 08:39 | PN.CDI ---
CDI
- -
CDI:
Physician Documentation Request
Admit Date: 06/10/24 06:06
Dear Doctor Marcia,
Please review the following and provide your response in the progress notes.
Clinical Indicators:
- 06/15 PN 'RLL Pneumonia'
- '06/12 VSE shows aspiration'
- 06/10 UC with Klebsiella pneumoniae ESBL
- IV abx Zosyn
Plase clarify further specificity regarding the known, suspected or likely type of pneumonia you are treating (recognizing the specific organism may not be known)?
Aspiration Pneumonia - indicate substance such as food or vomitus, oils or other solids or liquids
Gram negative Pneumonia - Klebsiella pneumoniae
Other organism - specify known or suspected type
Other (please specify)
Use of terms such as suspected, likely, concern for, or probable (associated with a specific diagnosis that is being evaluated, monitored, or treated as if it exists) are acceptable and can be coded in the inpatient setting, when documented at the
time of discharge.
Thank you,
Madina Morel RN
CDI Specialist
Please use your independent medical judgment in providing your response.
--- NOTE | 2024-06-16 10:03 | CM ---
Addendum entered by SARINA Fox 06/16/24 11:42:
Correct address is not on chart, verified [address] with niece, [address] [place] [address]. There are no steps to enter per previous CM note.
Original Note:
Spoke with previous CM on case. Placed a call to Shannan at [facility] who stated that she spoke with patient's niece this morning, who did confirm that she has 24/[address] for patient now and the DME will be delivered after 16:00 as
that is when patient's will return from Dialysis. Transportation can be set up around that time. # for fax [phone]
Plan: Case management will continue to follow and assist with discharge planning. Home with [facility] today after 4.
--- NOTE | 2024-06-16 11:37 | W.PN.HOSP.TC ---
Today's Communication/Plan
-
DC home with hospice services.
Assessment / Plan
Assessment / Plan
88y M with PMH significant for ASCVD, A-Fib and recent duodenal ulcer s/p repair who presents to ED complaining of burning epigastric pain and SOB. Patient is currently in SNF at [facility]. He was originally hospitalized at [place] [facility] in
April for perforated duodenal ulcer and underwent ex alp and repair at that time. He was discharged to SNF in [place] from 04/20 - 05/21 and then discharged to home. He did not do well at home and was admitted to [facility] on 06/01
for continued therapy / recovery.
Patient states that he developed a cough a few days ago. He has difficulty expectorating / bringing up mucus. He had a CXR done on 06/08/24 that was read as RLL Pneumonia and he was started on abx with cefuroxime at that time.
RLL Pneumonia/
Aspiration Pneumonia from food ( solids and liquids )
Sepsis secondary to the above
Lactic Acidosis secondary to the above
-s/p IV Zosyn, finished 7 days. s/p mucolytics, supportive care
- No fevers. No worsening hypoxia.
blood cultures negative to date
Dysphagia
- SPL recommends n.p.o. until VSE
- 06/12 VSE shows aspiration, SPL rec GOC
- Can have essential meds in pur�e and single sips of water with supervision for comfort
- 06/12, goals of care conversations initiated by myself with patient and
- Seen by palliative care, who recommends DNR status and hospice
- 06/13, had family meeting, patient and family agreed to DNR status
- 06/14, family met with hospice, plan for home with hospice
- Patient wishes to pass at home
- s/p IV fluids, IV antibiotics,
dc on comfort feedings.
ACS/NSTEMI
ASCVD
- Appreciate cardiology input, recommend medical management. Troponin peaked at 12.2
- Status post IV heparin drip, now back on Xarelto, Plavix added 06/11, aspirin discontinued
- Continue statin and beta-scout
Chronic heart failure with reduced ejection fraction
- EF 40-45%
c/w comfort measures.
Atrial Fibrillation with Rapid Ventricular Response
- Appreciate cardiology input, metoprolol decreased to 25 mg every 6 hours
- Held Xarelto for now while on IV heparin. Back on Xarelto.
Hypotension, septic shock , resolved.
- Gentle IV fluids, midodrine as needed MAP less than 65
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
- SCr = 1,3 was 1.6, was 1.8 and [place] notes recent SCr = 1.1 upon dc
- s/p IVFs, held Lasix,
Hypoglycemia
-IV fluids changed to dextrose in half-normal saline and sodium bicarb
Duodenal Ulcer
GERD
- s/p ex lap and duodenal ulcer repair in April at [place].
- s/p IV PPI BID
Glucose intolerance
- Hemoglobin A1c 6.2
Goal is comfort at this point
BPH
Neurogenic Bladder
- Chiagn in place. Maintain for comfort measures.
- UA noted - RBCs and WBCs in equal numbers. Nitrites negative.
- Urine cultures growing 100,000 colonies gram-negative rods, likely colonization from chronic Chiang
Stage 3 sacrum pressure injury, POA
Stage 1 left upper ear pressure injury, POA
-wound care, offloading
DVT Prophylaxis: Xarelto
Code Status: Full
Total discharge time spent to see the patient on the floor, examine the patient, review data and lab results, discuss discharge plan with patient, behavioral health case manager, nursing staff around 67 minutes.
Physical Exam
General: Frail, elderly, appears chronically ill, but in no acute distress
HEENT: Normocephalic, Atraumatic, EOMI, DMM
Respiratory: Right basilar rhonchi
Cardiac: Normal S1/S2, intermittently tachycardic rate, irregular rhythm
GI: Soft, Nontender, Nondistended, Normal Bowel Sounds
Extremities: No Clubbing, Cyanosis
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
Neuro: Nonfocal/Grossly Intact
Derm: Diffuse ecchymosis of upper extremities
Psych: calm
Anticipated Discharge: Today
Subjective/Interval History
-
Date of Service: June 16, 2024
No sob
but later had sob with anxiety
Objective Data
-
Vital Signs:
Vital Signs
Temp Pulse Resp BP Pulse Ox
97.4 F 102 17 108/63 94
06/16/24 07:39 06/16/24 07:39 06/16/24 07:39 06/16/24 07:39 06/16/24 07:39
I&O
06/15/24 06/16/24 06/17/24
06:59 06:59 06:59
Intake Total 360 / 360 480 / 480
Output Total 325 / 325 100 / 100
Balance 35 / 35 380 / 380
[2024-06-16] MEDS: XOPENEX 0.63 MG INHALANT SOLUTION INH (12:56)
[2024-06-16] MEDS: ATIVAN 0.5 MG IV (13:10)
[2024-06-16] MEDS: NSS (PRESERVATIVE FREE) 0.25 ML IV (13:11)
[2024-06-16 14:57] VITALS: BP 99/65
--- NOTE | 2024-06-16 17:16 | W.DCSUMMARY ---
Discharge Summary
Discharge Data
Date of Admission: 06/10/24
Date of Discharge: 06/16/24
-
Pending Results: No
Hospital Course
88 years old male presented to the emergency room complaining of burning epigastric pain and shortness of breath. Patient was at [facility]. He was originally hospitalized at [place] in April for perforated duodenal ulcer and underwent
bowel surgery. He was discharged to rehab in [place] from 04/20 - 05/21 and then discharged to home. He did not do well at home and was admitted to [facility] on 06/01 for continued therapy / recovery. He was given antibiotics for
treatment of respiratory infection. Chest x-ray showed right middle lobe atelectasis/collapse with volume loss, small bilateral pleural effusions. Patient was found to have tachycardia, tachypnea, elevated troponin with lactic acidosis. Patient was
started on IV antibiotics for aspiration pneumonia. Manager Library recommended short course of IV heparin then resumed Xarelto for chronic atrial fibrillation. Patient was noticed to have persistent dysphagia. He was evaluated by speech therapy and
recommended nothing by mouth status, goal of care discussion. Patient and family decided to pursue comfort care and hospice after meeting with palliative care and financial systems analyst. Blood culture remained negative. Urine culture showed positive
infection and was treated with antibiotic. housekeeping manager was involved in discharge planning. Patient remained hemodynamically stable and was discharged home with home hospice services in a stable condition and to continue comfort feedings.
Discharge Plan
-
Patient Disposition: Home with Hospice
Discharge Diagnosis/Procedures: Aspiration pneumonia
Hypoxia
Dysphagia, continue with comfort feeding
Diet: As tolerated
Additional Diets: pureed/ soft diet
Activity Restrictions/Additional Instructions:
Wound Care Instructions
Sacral wounds-clean with saline or Vashe wound cleanser, apply silicone border foam, change daily and prn loosened dressing (add alginate prn large amount of drainage).
Protective foam to heels, change q 3 days and prn loosened dressing.
Barrier ointment to penis, scrotal, michael/buttocks MASD TID and prn incontinence.
Air mattress
Elevate heels off bed; soft heel relief boots as tolerated (i.e. TruVue lite boots).
Pressure redistributing chair cushion (i.e. Air chair cushion, Roho).
Turning schedule.
Follow up with wound dog daycare provider or at wound care center call for an appointment.
Referrals:
Bruce Calixto MD [Family Provider] -
Prescriptions:
Continued
acetaminophen 325 mg Tablet
650 mg PO Q6H PRN (Reason: fever or pain)
clopidogrel [Plavix] 75 mg Tablet
75 mg PO DAILY
magnesium hydroxide [Milk of Magnesia] 400 mg/5 mL Suspension
2,400 mg PO DAILYPRN PRN (Reason: if no bm x 3 days)
tamsulosin [Flomax] 0.4 mg Capsule
0.4 mg PO DAILY
bisacodyl [Dulcolax (bisacodyl)] 10 mg Suppository
10 mg RI DAILY PRN (Reason: constipation if no bm after MOM)
nystatin-triamcinolone 100,000-0.1 unit/g-% Cream
1 applic TOPICAL TID
Fleet Enema 19-7 gram/118 mL Enema
118 ml RI DAILYPRN PRN (Reason: if dulcolax ineffective)
ammonium lactate 12 % Cream
1 applic TOPICAL BID
Saccharomyces boulardii 250 mg Capsule
250 mg PO BID
Rx Instructions:
start 06/09/24 end 06/19/24
zinc oxide 13 % Cream
1 applic TOPICAL BID
Xarelto 15 mg Tablet
15 mg PO DAILY
Changed
metoprolol tartrate 25 mg Tablet
50 mg PO BID Qty: 0 0RF
Discontinued
furosemide [Lasix] 40 mg Tablet
40 mg PO DAILY
fenofibrate micronized 200 mg Capsule
200 mg PO DAILY
pantoprazole 40 mg Tablet,Delayed Release (Dr/Ec)
40 mg PO DAILY
simvastatin 20 mg Tablet
20 mg PO HS
cefuroxime axetil 500 mg Tablet
500 mg PO BID
Rx Instructions:
start 06/09/24 end date 06/14/24
lutein-zeaxanthin 25-5 mg Capsule
1 cap PO BID
Discharge Orders:
Discharge Patient (As Directed); Ordered 06/16/24
Ordered By: Ambrosio Kennedy
Discharge Date and Time
Discharge Date/Time: 06/16/24 17:13
Print Language: MACEDONIAN
== END 2024-06-16 17:13 | disposition hospice, home (50) | DRG 871 ==
LOC: 3 WEST ACU 06:06
PROVIDERS: Family Medicine; Nurse Practitioner Family; Registered Nurse; ADMITTING PHYSICIAN Hospitalist; ATTENDING PHYSICIAN Internal Medicine; CONSULT PHYSICIAN Internal Medicine Hospice and Palliative Medicine; EMERGENCY PHYSICIAN Student in an Organized Health Care Education/Training Program; FAMILY PHYSICIAN Internal Medicine; OTHER PHYSICIAN Internal Medicine Cardiovascular Disease; REFERRING PHYSICIAN Student in an Organized Health Care Education/Training Program
DX: A41.9 Sepsis, unspecified organism (principal); I21.4 Non-ST elevation (NSTEMI) myocardial infarction; L89.153 Pressure ulcer of sacral region, stage 3; J69.0 Pneumonitis due to inhalation of food and vomit; N17.9 Acute kidney failure, unspecified; E87.20 Acidosis, unspecified; I13.0 Hypertensive heart and chronic kidney disease with heart failure and stage 1 through stage 4 chronic kidney disease, or unspecified chronic kidney disease; I50.22 Chronic systolic (congestive) heart failure; Z11.52 Encounter for screening for COVID-19; I25.10 Atherosclerotic heart disease of native coronary artery without angina pectoris; I48.91 Unspecified atrial fibrillation; N18.30 Chronic kidney disease, stage 3 unspecified; K26.9 Duodenal ulcer, unspecified as acute or chronic, without hemorrhage or perforation; K21.9 Gastro-esophageal reflux disease without esophagitis; Z51.5 Encounter for palliative care; Z59.89 Other problems related to housing and economic circumstances
CPT/HCPCS: 71046; 74230; 80048; 80053; 80061; 81003; 81015; 82962; 83036; 83605; 83690; 83735; 83880; 84484; 85025; 85027; 85610; 85730; 87040; 87045; 87046; 87077; 87086; 87186; 87324; 87427; 87449; 87502; 87811; 92526; 92610; 92611; 93005; 93306; 94640; 96365; 96366; 96367; 96375; 97163; 97167; 99285; J3480; Q9950